=== PATIENT | female | born 1965 | race Caucasian/White ===

== ENCOUNTER 2024-12-16 09:49 | Emergency (ER) | payer BC, OTHER, SELFPAY ==
--- NOTE | ~2024-12-16 | CT_ITS ---
EXAMINATION: CT facial bones w con DATE: 12/16/2024 15:28 INDICATION: Left facial swelling. TECHNIQUE: Computed tomography (CT) of the facial bones and maxillofacial region was performed with 7 5 mL Omnipaque 350 intravenous contrast. Automated exposure control and iterative reconstruction tech [employer] were employed. The dose-length product was 270.87 mGy-cm. COMPARISON: None. FINDINGS: There is mild plaque in the proximal internal carotid arteries with 0% stenosis relative to normal distal artery lumen diameters. There are calcifications in the palatine tonsils. There are no pathologically enlarged lymph nodes. There is mild mucosal thickening in the ethmoid sinuses. The or bits are normal. In the left cheek, there is a 9 mm subcutaneous cystic mass with surrounding fat str anding. IMPRESSION: 1. 9 mm subcutaneous cystic mass with surrounding fat stranding in the left cheek, which may be a escobar aceous cyst with inflammation. Reviewed, dictated and finalized at location L. IMPRESSION: 1. 9 mm subcutaneous cystic mass with surrounding fat stranding in the left aleksey ek, which may be a sebaceous cyst with inflammation.
[2024-12-16 10:03] VITALS: BP 124/78; PULSE 81; RESP 16; TEMP 36.6; O2SAT 99
--- OUTSIDE RECORDS SUMMARY | 2024-12-16 10:25 | XMS_ITS | CONTINUITY OF CARE DOCUMENT ---
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
--- OUTSIDE RECORDS SUMMARY | 2024-12-16 10:25 | XMS_ITS | Data Portability ---
Author Organization ALEJO RANDIThomas Barlow Address [address] [place] [address] Care Team Providers Care Clothes Designer Name Role Phone NIKI ERNANDEZ Primary Care Provider [phone] Assessment No assessment recorded. Plan of Treatment Reminders Order Date Submit Date Provider Last Modified By Organization Details Last Modified Time Details Appointments None recorded. Lab CMP, serum or plasma 2022 023 [facility] (Lab), [address] [place], [address], 3 06:18:31 lipid panel w/ direct LDL, serum [email or web address] (Lab), [address] [place], [address], 3 08:41:17 unlisted lab - CBC with different ial/plate let [email or web address] (Lab), [address] [place], [address], 3 10:36:01 CMP, serum or plasma 2022 023 [facility], [facility], [address] [address], [place], [address], 3 07:23:12 CBC w/ auto diff 2022 023 [facility], [address] [facility], [address], [place], [address], 3 06:18:32 lipid panel, serum 2022 023 [facility], [address], [address], [place], [address], 3 06:18:31 HbA1c (hemoglob in A1c), blood 2022 023 [facility], [address] [facility] [address], [address], [place], [address], 3 13:11:04 TSH + free T4, serum 2022 023 [facility], [address] [address], [place], [address], 3 13:11:03 vitamin B12 + folate, serum or blood 2022 023 [facility], [address] [facility] [address], [address], [place], [address], 3 13:11:04 pap, IG + HPV, cervical - please use Z11.51 in addition to code above for HPV testing. 2020 [facility], [address], [address] [address], [place], [address], 16:12:32 bacterial vaginosis panel, vaginal 2020 [facility] (Centralized Electronic Ordering - All Locations), Patient Can Go To The Location Of Their Choice, 03:07:25 culture, vaginal/r ectal, streptoco ccus group B 2020 [facility] (Centralized Electronic Ordering - All Locations), Patient Can Go To The Location Of Their Choice, [address] 10/19/202 1 03:07:26 Referral cardiolog ist referral 2022 023 [facility], 0 [facility], [facility] [address], [place], [address], 3 10:59:36 gynecolog ist referral - hx of cervical cancerabn ormal pap 2020 023 [facility], [address] [place], [address], 4 15:11:31 physical therapist referral 2022 023 [facility], [address] [place], [address], 3 12:09:38 pulmonolo gist referral 2022 023 [facility] Garr[facility], [address] [place], [address], 4 05:01:47 cardiolog ist referral 2022 023 [facility], 0 [facility], [facility] [address], [place], [address], 3 11:07:[address] referral 2022 023 [facility], [address] , [facility] [address], [place], [address], 3 11:06:20 physical therapist referral 2022 023 [facility], [address] [place], [address], 3 09:39:31 pulmonolo gist referral 2022 023 [facility] Garrido, [address] [facility], [place], [address], 3 16:19:38 Procedures None recorded. Surgeries None recorded. Imaging DEXA, axial skeleton + vertebral fracture assessmen t 2022 023 [facility] (Radiology), [address] [place], [address], 3 11:40:45 MAMMO, screening , bilateral 2022 023 [facility] (One Call Scheduling), [address] [place], [address], 3 11:37:42 DEXA, axial skeleton + vertebral fracture assessmen t [address] (One Call Scheduling), [address] [place], [address], 3 16:14:51 XR, thoracic spine [address] [facility] (One Call Scheduling), [address] [place], [address], 3 09:39:56 CT, chest, w/ contrast 2022 023 [facility], [address] [place], [address], 3 20:06:40 MAMMO, screening , bilateral [address] [facility] (One Call Scheduling), [address] [place], [address], 1 14:06:50 DEXA, axial skeleton [address] [facility] (One Call Scheduling), [address] [place], [address], 1 13:08:36 Medication Orders bupropion HCl 150 mg tablet,12 hr sustained -release( smoking deterrent ) [address]23 [address] [address], [address] [place] [address], [address], 3 09:59:44 Calcium with Vitamin D 600 mg-10 mcg (400 unit) tablet [address] [facility], [address] [place] [address], [address], 3 21:02:14 albuterol sulfate HFA 90 mcg/actua tion aerosol inhaler 2022 023 [address] [address], [address] [place] [address], [address], 3 09:09:49 multivita min tablet 2022 023 [address] [address], [address] [place] [address], [address], 3 21:08:50 aspirin 81 mg tablet,de layed release 2022 023 [address] [address], [address] [place] [address], [address], 3 16:14:51 multivita min tablet 2020 021 [facility], [address] [place] [address], [address], 1 14:35:04 Calcium with Vitamin D 600 mg-10 mcg (400 unit) tablet 2020 [address] [address], [address] [place] [address], [address], 1 14:35:04 Patient TargetsNo targets recorded. Patient Instructions Encounter Date Encounter Id Patient Instructions Last Modified By Organization Details Last Modified Time 07/15/2021 [id number] influenza (flu) vaccine: care instructions meenu Not available 07/15/2021 15:11:32 mammogram: about this test meenu Not available 07/15/2021 14:35:04 mammogram screening patient instructions meenu Not available 07/15/2021 14:35:04 03/10/2023 [id number] complete PFT w/ post bronchodilator spirometry* [facility] Not available 03/26/2023 16:40:32 I have reviewed the patient's medical record and the note from this clinical encounter. I was available by phone for the duration of the visit. I agree with the assessment and plan with the following addendum: Recommend a statin if pt will tolerate. Pt simply must quit smoking. Prashant Pritchard MD Not available 03/16/2023 15:09:24 06/24/2023 [id number] Quitting Tobacco : Care Instructions Not available 06/24/2023 09:59:45 Learning About Benefits of Quitting Smoking Not available 06/24/2023 09:59:45 I have reviewed the patient's medical record and the note from this clinical encounter. I was available by phone for the duration of the visit. I agree with the assessment and plan with the following addendum: [none]. Prashant Pritchard MD Not available 06/25/2023 11:19:16 Reason for Referral Neurologist Referral for His tory of transient ischemic attack Referring Physician: [facility], Encounter Date: 03/10/2023 Installation Drafter Referral for Fl uttering heart Referring Physician: General Krissy Zhou, Encounter Date: 03/10/2023 Physical Therapist Referral for Thoracic back pain Referring Physician: General Krissy Zhou, Encounter Date: 03/10/2023 Business Instructor Referral for N odule of lung Referring Physician: General Krissy Zhou, Encounter Date: 03/10/2023 Installation Drafter Referral for Fl uttering heart Referring Physician: Niki Ernandez Frozen Pie Maker, Encounter Date: 06/24/2023 Physical Therapist Referral for Thoracic back pain Referring Physician: Niki Ernandez Frozen Pie Maker, Encounter Date: 06/24/2023 Business Instructor Referral for N odule of lung Referring Physician: Niki Ernandez Frozen Pie Maker, Encounter Date: 06/24/2023 Director Of Operations For Therapy Referral for Hi story of malignant neoplasm of cervix hx of cervical cancerabnormal pap 2020 Referring Physician: Niki Ernandez Frozen Pie Maker, Encounter Date: 06/24/2023 Results Created Date Observation Date Name Description Value Unit Range Abnormal Flag Note LastModifiedBy Organization Detail LastModifiedTime 07/15/2007/17/2021 IGP, APTIM A HPV HPV aptima Positi ve negati ve abnormal This nucle ic acid ampli ficat ion test detec ts fourt een high- risk HPV types (16,1 8,31, 33,35 ,39,4 5,51, 52,56 ,58,5 9,66, 68) witho ut diffe renti ation . Not Available [facility] ([facility]) [address] [place], [address], 07/18/2021 16:12:32 07/15/2007/18/2021 IGP, APTIM A HPV diagnosis: Commen t abnormal EPITH ELIAL CELL ABNOR MALIT Y. LOW GRADE SQUAM OUS INTRA EPITH ELIAL LESIO N (LSIL ). Not Available [facility] ([facility]) [address] [place], [address], 07/18/2021 16:12:32 07/15/2007/18/2021 IGP, APTIM A HPV recommendati on: Commen t abnormal Sugge st follo w up as clini timo appro priat e. Not Available [facility] ([facility]) [address] [place], [address], 07/18/2021 16:12:32 07/15/20 07/18/2021 IGP, APTIM A HPV specimen adequacy: Sal hines Satis facto ry for evalu ation . Endoc ervic al and/o r squam ous metap lasti c cells (endo cervi hector compo nent) are prese nt. Not Available [facility] ([facility]) [address] [facility], [place], [address], 07/18/2021 16:12:32 07/15/20 21 07/18/2021 IGP, APTIM A HPV clinician provided ICD10: Sal hines Z01.4 19 Z11.5 1 Z20.2 Not Available [facility] ([facility]) [address] [place], [address], 07/18/2021 16:12:32 07/15/20 21 07/18/2021 IGP, APTIM A HPV performed by: Sal Cohen r, Cytot echno logis t Not Available [facility] ([facility]) [address] [place], [address], 07/18/2021 16:12:32 07/15/20 21 07/18/2021 IGP, APTIM A HPV electronical ly signed by: Sal Mello MD, Patho logis t Not Available [facility] ([facility]) [address] [place], [address], 07/18/2021 16:12:32 07/15/20 21 07/18/2021 IGP, APTIM A HPV . . Not Available [facility] ([facility]) [address] [place], [address], 07/18/2021 16:12:32 07/15/20 21 07/18/2021 IGP, APTIM A HPV pathologist provided ICD10: Sal hines R87.6 12 Not Available [facility] ([facility]) [address] [place], [address], 07/18/2021 16:12:32 07/15/20 21 07/18/2021 IGP, APTIM A HPV note: Commen t The Pap smear is a scree mary test desig deng to aid in the detec tion of stephanie ligna nt and malig nant condi tions of the uteri ne cervi x. It is not a diagn ostic proce dure and shoul d not be used as the sole means of detec ting cervi hector cance r. Both false -posi tive and false -nega tive repor ts do occur . Not Available [facility] ([facility]) [address] [facility], [place], [address], 07/18/2021 16:12:32 07/15/20 21 07/18/2021 IGP, APTIM A HPV test methodology: Sal t This liqui d based ThinP rep(R ) pap test was scree deng with the use of an image guide lauryn yung Not Available [facility] ([facility]) [address] [facility], [place], [address], 07/18/2021 16:12:32 07/15/20 21 07/16/2021 NUSWA B VG+, HSV atopobium vaginae Low - 0 score Not Available [facility] ([facility]) [address] [facility], [place], [address], 07/23/2021 03:07:25 07/15/20 21 07/16/2021 NUSWA B VG+, HSV bvab 2 Low - 0 score Not Available [facility] ([facility]) [address] [place], [address], 07/23/2021 03:07:25 07/15/20 21 07/16/2021 NUSWA B VG+, HSV megasphaera 1 Low - 0 score Calcu late total score by froy blount the 3 indiv idual bacte rial vagin osis (BV) marke r score s toget her. Total score is inter prete d as follo ws: Total score 0-1: Indic ates the absen ce of BV. Total score 2: Indet ermin ate for BV. Addit ional clini hector data shoul d be evalu ated to estab debra a diagn osis. Total score 3-6: Indic ates the prese nce of BV. This test was devel oped and its perfo rmanc e jv cteri stics deter mined by [facility]. It has not been clear ed or appro naina by the Food and Drug Admin istra tion. Not Available [facility] ([facility]) [address] [facility], [place], [address], 07/23/2021 03:07:25 07/15/2007/16/2021 NUSWA B VG+, HSV renaldo albicans, SAM Negati ve negati ve Not Available [facility] ([facility]) [address] [place], [address], 07/23/2021 03:07:25 07/15/2007/16/2021 NUSWA B VG+, HSV renaldo glabrata, SAM Negati ve negati ve Not Available [facility] ([facility]) [address] [place], [address], 07/23/2021 03:07:25 07/15/2007/16/2021 NUSWA B VG+, HSV trich vag by SAM Negati ve negati ve Not Available [facility] ([facility]) [address] [place], [address], 07/23/2021 03:07:25 07/15/2007/16/2021 NUSWA B VG+, HSV chlamydia trachomatis, SAM Negati ve negati ve Not Available [facility] ([facility]) [address] [place], [address], 07/23/2021 03:07:25 07/15/20 21 07/16/2021 NUSWA B VG+, HSV neisseria gonorrhoeae, SAM Negati ve negati ve Not Available [facility] ([facility]) [address] [facility], [place], [address], 07/23/2021 03:07:25 07/15/20 21 07/23/2021 NUSWA B VG+, HSV hsv 1 SAM Negati ve negati ve Not Available [facility] ([facility]) [address] [facility], [place], [address], 07/23/2021 03:07:25 07/15/2007/23/2021 NUSWA B VG+, HSV hsv 2 SAM Negati ve negati ve Not Available [facility] ([facility]) [address] [facility], [place], [address], 07/23/2021 03:07:25 07/15/2007/17/2021 STREP GP B SAM strep gp B SAM Negati ve negati ve Cente rs for Disea se Contr ol and Preve ntion (CDC) and [facility]itchie can Congr ess of Obste trici ans and Gynec ologi sts (ACOG ) guide lines for preve ntion of perin atal group B strep tococ hector (GBS) disea se speci fy co-co llect ion of a vagin al and recta l swab speci men to maxim ize sensi tivit y of GBS detec tion. Per the CDC and ACOG, swabb ing both the lower vagin a and rectu m subst antia lly incre ases the yield of detec tion darryl red with sampl ing the vagin a alone . Penic illin G, ampic illin , or cefaz aj are indic ated for intra partu m proph ylaxi s of perin atal GBS colon izati on. Refle x susce ptibi lity testi ng shoul d be perfo rmed prior to use of clind amyci n only on GBS isola jennifer from penic illin -rod rgic women who are consi dered a high risk for anaph ylaxi s. Treat ment with vanco mycin witho ut addit ional testi ng is warra nted if resis tance to clind alyse n is noted . Not Available [facility] ([facility]) [address] [place], [address], 07/23/2021 03:07:26 03/10/2003/17/2023 TSH+F REE T4 TSH 1.600 uIU/m L 0.450- 4.500 Not Available [facility] ([facility]) [address] [place], [address], 03/17/2023 13:11:03 03/10/2003/17/2023 TSH+F REE T4 T4,free(dire ct) 1.58 NG/dL 0.82-1 .77 Not Available [facility] ([facility]) [address] [place], [address], 03/17/2023 13:11:03 03/10/2003/17/2023 VITAM IN B12 AND FOLAT E vitamin B12 404 pg/mL 232-12 45 Not Available [facility] ([facility]) [address] [place], [address], 03/17/2023 13:11:04 03/10/2003/17/2023 VITAM IN B12 AND FOLAT E folate (folic acid), serum 9.5 NG/mL >3.0 A serum folat e salvador ntrat ion of less than 3.1 ng/mL is consi dered to repre sent clini hector defic iency . Not Available [facility] ([facility]) [address] [place], [address], 03/17/2023 13:11:04 03/10/2003/17/2023 HEMOG LOBIN A1C hemoglobin A1C 5.6 % 4.8-5. 6 Predi abete s: 5.7 - 6.4 Diabe jennifer: >6.4 Glyce heriberto contr ol for adult s with diabe jennifer: <7.0 Not Available [facility] ([facility]) [address] [place], [address], 03/17/2023 13:11:04 06/24/20 23 06/25/2023 LIPID PANEL cholesterol, total 248 mg/dL 100-19 9 above high normal Not Available [facility] ([facility]) [address] [place], [address], 06/25/2023 06:18:30 06/24/20 23 06/25/2023 LIPID PANEL triglyceride s 160 mg/dL 0-149 above high normal Not Available [facility] ([facility]) [address] [place], [address], 06/25/2023 06:18:30 06/24/20 23 06/25/2023 LIPID PANEL HDL cholesterol 53 mg/dL >39 Not Available [facility] ([facility]) [address] [place], [address], 06/25/2023 06:18:30 06/24/20 23 06/25/2023 LIPID PANEL VLDL cholesterol hector 29 mg/dL 5-40 Not Available [facility] ([facility]) [address] [place], [address], 06/25/2023 06:18:30 06/24/20 23 06/25/2023 LIPID PANEL LDL chol calc ([facility]) 166 mg/dL 0-99 above high normal Not Available [facility] ([facility]) [address] [place], [address], 06/25/2023 06:18:30 06/24/20 23 06/25/2023 COMP. METAB OLIC PANEL (14) glucose 80 mg/dL 70-99 Not Available [facility] ([facility]) [address] [place], [address], 06/25/2023 06:18:31 06/24/20 23 06/25/2023 COMP. METAB OLIC PANEL (14) BUN 22 mg/dL 6-24 Not Available [facility] ([facility]) [address] [place], [address], 06/25/2023 06:18:31 06/24/20 23 06/25/2023 COMP. METAB OLIC PANEL (14) creatinine 1.16 mg/dL 0.57-1 .00 above high normal Not Available [facility] ([facility]) [address] [place], [address], 06/25/2023 06:18:31 06/24/20 23 06/25/2023 COMP. METAB OLIC PANEL (14) eGFR 54 mL/mi n/1.7 3 >59 below low normal Not Available [facility] ([facility]) [address] [place], [address], 06/25/2023 06:18:31 06/24/20 23 06/25/2023 COMP. METAB OLIC PANEL (14) BUN/creatini ne ratio 19 9-23 Not Available [facility] ([facility]) [address] [place], [address], 06/25/2023 06:18:31 06/24/20 23 06/25/2023 COMP. METAB OLIC PANEL (14) sodium 139 mmol/ L 134-14 4 Not Available [facility] ([facility]) [address] [place], [address], 06/25/2023 06:18:31 06/24/20 23 06/25/2023 COMP. METAB OLIC PANEL (14) potassium 4.7 mmol/ L 3.5-5. 2 Not Available [facility] ([facility]) [address] [place], [address], 06/25/2023 06:18:31 06/24/20 23 06/25/2023 COMP. METAB OLIC PANEL (14) chloride 103 mmol/ L 96-106 Not Available [facility] ([facility]) [address] [place], [address], 06/25/2023 06:18:31 06/24/20 23 06/25/2023 COMP. METAB OLIC PANEL (14) carbon dioxide, total 24 mmol/ L 20- Not Available [facility] ([facility]) [address] [facility], [place], [address], 06/25/2023 06:18:31 06/24/20 23 06/25/2023 COMP. METAB OLIC PANEL (14) calcium 9.4 mg/dL 8.7-10 .2 Not Available [facility] ([facility]) [address] [facility], [place], [address], 06/25/2023 06:18:31 06/24/20 23 06/25/2023 COMP. METAB OLIC PANEL (14) protein, total 6.8 g/dL 6.0-8. 5 Not Available [facility] ([facility]) [address] [facility], [place], [address], 06/25/2023 06:18:31 06/24/20 23 06/25/2023 COMP. METAB OLIC PANEL (14) albumin 4.4 g/dL 3.8-4. 9 Not Available [facility] ([facility]) [address] [facility], [place], [address], 06/25/2023 06:18:31 06/24/20 23 06/25/2023 COMP. METAB OLIC PANEL (14) globulin, total 2.4 g/dL 1.5-4. 5 Not Available [facility] ([facility]) [address] [facility], [place], [address], 06/25/2023 06:18:31 06/24/20 23 06/25/2023 COMP. METAB OLIC PANEL (14) A/G ratio 1.8 1.2-2. 2 Not Available [facility] ([facility]) [address] [facility], [place], [address], 06/25/2023 06:18:31 06/24/20 23 06/25/2023 COMP. METAB OLIC PANEL (14) bilirubin, total 0.5 mg/dL 0.0-1. 2 Not Available [facility] ([facility]) [address] [place], [address], 06/25/2023 06:18:31 06/24/20 23 06/25/2023 COMP. METAB OLIC PANEL (14) alkaline phosphatase 87 IU/L 44-121 Not Available [facility] ([facility]) [address] [place], [address], 06/25/2023 06:18:31 06/24/20 23 06/25/2023 COMP. METAB OLIC PANEL (14) AST (SGOT) 23 IU/L 0-40 Not Available [facility] ([facility]) [address] [place], [address], 06/25/2023 06:18:31 06/24/20 23 06/25/2023 COMP. METAB OLIC PANEL (14) ALT (SGPT) 18 IU/L 0-32 Not Available [facility] ([facility]) [address] [place], [address], 06/25/2023 06:18:31 06/24/20 23 06/24/2023 JAQUAN SIERRA V CMP14 DEFAU LT jaquan abbgraciav CMP14 default Commen t A hand- writt en panel /prof vernon was recei naina from your offic e. In accor dance with the [facility] Ambig uous Test Code Polic y dated April 2003, we have compl eted your order by using the close st santiagoe ntly or meeta marley recog nized AMA panel . We have assig deng Asad lou edd Metab olic Panel (14), Test Code #32[address]. If this is not the testi ng you wishe d to recei ve on this speci men, pleas e conta ct the [facility] Clien t Inqui ry/Te chnic al Servi emerita Depar tment to demarcus fy the test order . We appre ciate your busin ess. Not Available [facility] ([facility]) [address] [facility], [place], [address], 06/25/2023 06:18:32 06/24/20 23 06/24/2023 JAQUAN ENCINASRE V LP DEFAU LT jaquan encinasrev LP default Commen t A hand- writt en panel /prof ile was recei naina from your offic e. In accor dance with the [facility] Ambig uous Test Code Polic y dated April 2003, we have compl eted your order by using the close st curre ntly or forme rly recog nized AMA panel . We have assmax vilchis Lipid Panel , Test Code #30[address]. If this is not the testi ng you wishe d to recei ve on this speci men, pleas e conta ct the [facility] Clien t Inqui ry/Te chnic al Servi emerita Depar tment to demarcus fy the test order . We appre ciate your busin ess. Not Available [facility] ([facility]) [address] [facility], [place], [address], 06/25/2023 06:18:32 06/24/20 23 06/25/2023 CBC WITH DIFFE RENTI AL/PL ATELE T WBC 5.4 x10e3 /uL 3.4-10 .8 Not Available [facility] ([facility]) [address] [facility], [place], [address], 06/25/2023 06:18:32 06/24/20 23 06/25/2023 CBC WITH DIFFE RENTI AL/PL ATELE T RBC 3.91 x10e6 /uL 3.77-5 .28 Not Available [facility] ([facility]) [address] [facility], [place], [address], 06/25/2023 06:18:32 06/24/20 23 06/25/2023 CBC WITH DIFFE RENTI AL/PL ATELE T hemoglobin 13.1 g/dL 11.1-1 5.9 Not Available [facility] ([facility]) [address] [place], [address], 06/25/2023 06:18:32 06/24/20 23 06/25/2023 CBC WITH DIFFE RENTI AL/PL ATELE T hematocrit 38.9 % 34.0-4 6.6 Not Available [facility] ([facility]) [address] [place], [address], 06/25/2023 06:18:32 06/24/20 23 06/25/2023 CBC WITH DIFFE RENTI AL/PL ATELE T MCV 100 fL 79-97 above high normal Not Available [facility] ([facility]) [address] [place], [address], 06/25/2023 06:18:32 06/24/20 23 06/25/2023 CBC WITH DIFFE RENTI AL/PL ATELE T MCH 33.5 pg 26.6-3 3.0 above high normal Not Available [facility] ([facility]) [address] [place], [address], 06/25/2023 06:18:32 06/24/20 23 06/25/2023 CBC WITH DIFFE RENTI AL/PL ATELE T MCHC 33.7 g/dL 31.5-3 5.7 Not Available [facility] ([facility]) [address] [place], [address], 06/25/2023 06:18:32 06/24/20 23 06/25/2023 CBC WITH DIFFE RENTI AL/PL ATELE T RDW 12.5 % 11.7-1 5.4 Not Available [facility] ([facility]) [address] [place], [address], 06/25/2023 06:18:32 06/24/20 23 06/25/2023 CBC WITH DIFFE RENTI AL/PL ATELE T platelets 290 x10e3 /uL 150-45 0 Not Available [facility] ([facility]) [address] [facility], [place], [address], 06/25/2023 06:18:32 06/24/20 23 06/25/2023 CBC WITH DIFFE RENTI AL/PL ATELE T neutrophils 54 % notest ab. Not Available [facility] ([facility]) [address] [facility], [place], [address], 06/25/2023 06:18:32 06/24/20 23 06/25/2023 CBC WITH DIFFE RENTI AL/PL ATELE T lymphs 34 % notest ab. Not Available [facility] ([facility]) [address] [facility], [place], [address], 06/25/2023 06:18:32 06/24/20 23 06/25/2023 CBC WITH DIFFE RENTI AL/PL ATELE T monocytes 7 % notest ab. Not Available [facility] ([facility]) [address] [facility], [place], [address], 06/25/2023 06:18:32 06/24/20 23 06/25/2023 CBC WITH DIFFE RENTI AL/PL ATELE T eos 4 % notest ab. Not Available [facility] ([facility]) [address] [facility], [place], [address], 06/25/2023 06:18:32 06/24/20 23 06/25/2023 CBC WITH DIFFE RENTI AL/PL ATELE T basos 1 % notest ab. Not Available [facility] [facility] [address] [place], [address], 06/25/2023 06:18:32 06/24/20 23 06/25/2023 CBC WITH DIFFE RENTI AL/PL ATELE T neutrophils (absolute) 2.9 x10e3 /uL 1.4-7. 0 Not Available [facility] ([facility]) [address] [facility], [place], [address], 06/25/2023 06:18:32 06/24/20 23 06/25/2023 CBC WITH DIFFE RENTI AL/PL ATELE T lymphs (absolute) 1.8 x10e3 /uL 0.7-3. 1 Not Available [facility] ([facility]) [address] [facility], [place], [address], 06/25/2023 06:18:32 06/24/20 23 06/25/2023 CBC WITH DIFFE RENTI AL/PL ATELE T monocytes(ab solute) 0.4 x10e3 /uL 0.1-0. 9 Not Available [facility] ([facility]) [address] [facility], [place], [address], 06/25/2023 06:18:32 06/24/20 23 06/25/2023 CBC WITH DIFFE RENTI AL/PL ATELE T eos (absolute) 0.2 x10e3 /uL 0.0-0. 4 Not Available [facility] ([facility]) [address] [facility], [place], [address], 06/25/2023 06:18:32 06/24/20 23 06/25/2023 CBC WITH DIFFE RENTI AL/PL ATELE T baso (absolute) 0.1 x10e3 /uL 0.0-0. 2 Not Available [facility] ([facility]) [address] [place], [address], 06/25/2023 06:18:32 06/24/20 23 06/25/2023 CBC WITH DIFFE RENTI AL/PL ATELE T immature granulocytes 0 % notest ab. Not Available [facility] ([facility]) [address] [facility], [place], [address], 06/25/2023 06:18:32 06/24/20 23 06/25/2023 CBC WITH DIFFE RENTI AL/PL ATELE T immature grans (abs) 0.0 x10e3 /uL 0.0-0. 1 Not Available [facility] ([facility]) [address] [facility], [place], [address], 06/25/2023 06:18:32 08/02/20 21 08/02/2021 DEXA, axial skele ton No observ ation record ed. [address] ([facility]) [address] [place], [address], 08/22/2021 10:03:58 08/02/20 21 08/02/2021 DEXA, axial skele ton No observ ation record ed. [facility] [address] [place], [address], 08/14/2021 11:02:45 08/02/20 21 08/02/2021 MAMMO , scree mary, bilat eral No observ ation record ed. [address] ([facility]) [address] [place], [address], 08/22/2021 10:04:24 08/02/20 21 08/02/2021 MAMMO , scree mary, bilat eral No observ ation record ed. [facility] [address] [place], [address], 08/10/2021 22:57:46 01/11/20 22 01/10/2022 CT, abdom en + pelvi s, w/o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 influenza vaccine 85769169 Atrophic vaginitis 65207913 Menopausal syndrome 363477381 Venereal d isease screening 883821544 Screening mammography [id number] Paulina Yunier Salcedo (Adult Med) [address] [place] [address] [id number] 0 05/07/2015 16:15:58 05/08/2015 11:11:22 Ulcer of duodenum 66280926 Depressive disorder 00922732 Anxiety 19062918 [id number] Debbie High is Matias (Adult Med) [address] [place] [address] [id number] 0 09/20/2015 14:04:59 09/20/2015 18:08:01 Shoulder pain 18361986 M25.519 Ulcer of duodenum 582118 09 K26.3 [id number] Debbie High is Matias (Adult Med) [address] [place] [address] [id number] 0 10/10/2015 14:01:22 10/11/2015 13:02:21 Ulcer of duodenum 29962461 K26.3 H. pylori negative Tobacco user 715399499 Z 72.0 Gastroesop hageal reflux disease 771110900 K21.9 Tomography - chest abnormal 258308252 R93.[address] noncalcifi ed bilateral pulmonary nodules( no change from 04/2015 to 10/2015). repeat in 6 months [id number] Edward Salcedo (SINTER MACHINE OPERATOR) [address] [place] [address] [id number] 0 10/11/2015 14:38:33 10/11/2015 16:52:37 Irritable bowel syndrome 18223682 K58.9 [id number] Paulina Faye Matias (Adult Med) [address] [place] [address] [id number] 0 03/18/2016 16:05:25 03/19/2016 10:18:57 Skin lesion 54990663 L98.9 Tomography - chest abnormal 706358608 R93.[address] noncalcifi ed bilateral pulmonary nodules( no change from 04/2015 to 10/2015). repeat in 6 months [id number] MD Matias Pina (Adult Med) [address] [place] [address] [id number] 0 05/05/2017 12:04:30 05/06/2017 12:19:04 Chronic back pain 983858329 R52 Pain in wrist 13567741 M 25.532 Hyperpigme ntation of skin 02219192 L81.9 [id number] MD Matias Pina (Adult Med) [address] [place] [address] [id number] 0 06/16/2017 11:07:32 06/16/2017 12:00:06 Ulcer of duodenum 44014231 K26.3 H. pylori negative Anxiety 19136224 F41.9 History of peptic ulcer 680599556 Z87.11 Pain in wrist 54501639 M 25.532 Gastroesop hageal reflux disease 355201697 K21.9 Tomography - chest abnormal 045661939 R93.[address] noncalcifi ed bilateral pulmonary nodules( no change from 04/2015 to 10/2015). repeat in 6 months [id number] MD Matias Pina (Adult Med) [address] [place] [address] [id number] 01/24/2019 16:57:51 01/24/2019 18:16:10 Gastroesophageal reflux disease 054196077 K21.9 Hyperglycemia 25546502 R 73.9 [id number] MD Matias Pina (Adult Med) [address] [place] [address] [id number] 0 04/25/2020 10:35:50 04/26/2020 16:07:34 Right sided abdominal pain 033990171 R10.9 Loose stool 903585441 R1 9.5 [id number] MD Matias Pina (Adult Med) [address] [place] [address] [id number] 0 05/28/2021 12:22:09 05/31/2021 08:33:52 Diverticulosis of colon 162121740 K57.30 Re Chronic ab dominal pain 604235463 R10.9 Request most recent ED reports Micturitio n frequency and polyuria 222924768 R35.0 [id number] Edward WhitleyEmmavalentin Salcedo (SINTER MACHINE OPERATOR) [address] [place] [address] [id number] 0 07/15/2021 14:09:29 07/18/2021 14:41:54 Gynecologic examination 43191765 Z01.419 Z11.51 Screening mammography 24 341634 Z12.31 Exposure t o sexually transmissible disorder 329879155 Z20.2 Screening for osteoporosis 774104631 Z13.820 Administra tion of influenza vaccine 91154882 Z23 [id number] Boston Salcedo (SINTER MACHINE OPERATOR) [address] [place] [address] [id number] 0 08/27/2021 11:46:33 09/05/2021 08:49:30 Low grade squamous intraepithelial lesion on cervical Papanicolaou smear 6348445649 9105 R87.612 07/25/2021 : LGSIL, HPV pos02/16/20 15: NILM, HPV negInitial scheduled for Colposcopy . Per new ASCCP guidelines , follow up in 1 year for repeat PapEducati on on new management guidelines provided to patient. All questions and concerns addressed and patient agrees to return in 1 year for repeat Pap. [id number] Prashant barnes MD [facility] [address] [place] [address] 03/10/2023 14:47:36 03/10/2023 15:59:25 Nodule of lung 734321990 R91.1 7mm R lung Abnormal c ervical Papanicolaou smear 286007434 R87.619 LSIL + hpv 2020hx of cervical cancer age 17 s/p cryotherap y with cone bx Smoker 91695441 F17.200 1/4 ppd since age [age] years pack hxct scan ordered w/ contrast due to known nodules History of transient ischemic attack 248655737 Z86.73 I had a ministroke around 2020. states she developed blurry vision for 10 minutes. never went to the hospital. No recent episodes Screening mammography 24 917638 Z12.31 left breast surgery lumpectomy , benign Osteopenia 570823918 M85 .80 on dexa scannever picked up bisphospho natescreen start calcium+ Vitamin D Thoracic back pain 03604 8004 M54.6 pain has been going x 20 yearsworse in winternoth ing for paintried PT for pain History of malignant neoplasm of cervix 735830465 Z85.[address] Gama in [facility] cryotherap y cone biopsy done Fluttering heart 7920478 04 R00.2 my heart flutters at times - cardiology Chronic ob structive pulmonary disease 64224007 J44.[address] scan 2020. admits to SOB on occasion with exertion and sometimes laying down. worse with this muggy weather. - obtain PFT- trial inhaler-st op smoking Adult heal th examination 726101129 Z00.00 - due for mammogram- need OBGYN komal for hx of cervical cancer and LSIL + HPV 2020- b12 for macroblast ic anemia- r/o DM, hyperlipid emia- start aspirin- neurology referral for TIA> 1 year ago- stop smoking- CT for pulm nodules Nutritiona l deficiency state 04174836 E63.9 pt with osteopenia and hx of megalobast ic anemia w/o any use of alcohol. She drinks >40 oz of mountain dew, has cereal for breakfast and denies eating any veggies. occasional ly has eggs or meats. - spent much time discussing diet and nutrition- start multivitam in- take ca+vitD [id number] Inocencia Chen MA [facility] [address] [place] [address] 03/16/2023 10:48:28 03/16/2023 10:50:21 [id number] Prashant barnes MD [facility] [address] [place] [address] 06/24/2023 09:00:00 06/24/2023 09:47:47 Nodule of lung 053796073 R91.1 7mm R lungdid not scheduleCT 2022, stable Smoker 43852796 F17.200 1/4 ppd since age [age] years pack hxstart bupropion, has failed patches in the past Osteopenia 319486657 M85 .80 repeat dexa scancontin ue calcium+ Vitamin D Thoracic back pain 81097 8004 M54.6 pain has been going x 20 yearsworse in winternoth ing for paindid not do PT, referral re-sent History of malignant neoplasm of cervix 503328309 Z85.41 hx of cervical cancer age 17 s/p cryotherap y with cone bx ([place] Gama in [place] + hpv 2020 Fluttering heart 3703490 04 R00.2 my heart flutters at times flut tering at night time- cardiology Chronic ob structive pulmonary disease 31005896 J44.[address] scan 2020.moder ate COPD on PFT 2022 - PREVNAR 23- start bupropion for smoking cessation Arterioscl erotic vascular disease 73096862 I70.90 changed on MRI per neurology (Dr RABAGO), requesting records and MRItaking aspirinhas not started statin, agrees to startstop smoking Health Concerns Section Related Observation LastModified by Organization Detai ls LastModified Time None Recorded Concern Status LastModified by Organization Details LastModified Time None Recorded Advance Directives Directive N: Payers Encounter Date Sequence Insurance Name Policy Number Policy Ariza Covered Member ID Ariza Member ID Guarantor Name 07/15/2021 1 [facility] ON OR AFTER 04/04/21 (MEDICAID REPLACEMENT - HMO) Ayanna Layton [id number] Ayanna Layton 08/27/2021 1 [facility] ON OR AFTER 04/04/21 (MEDICAID REPLACEMENT - HMO) Ayannarobert Layton [id number] Ayanna Layton 03/10/2023 1 [facility] ON OR AFTER 04/04/21 (MEDICAID REPLACEMENT - HMO) Ayanna Rush [id number] Ayanna Layton 03/16/2023 1 [facility] ON OR AFTER 04/04/21 (MEDICAID REPLACEMENT - HMO) Ayannarobert Layton [id number] Ayanna Layton 06/24/2023 1 [facility] ON OR AFTER 04/04/21 (MEDICAID REPLACEMENT - HMO) Ayanna Layton [id number] Ayanna Layton Notes Date Note Type Note Provider Name and Address Organization Details Recorded Time 07/15/2021 text/html Annual GYNReport ed bypatient.Menstrual cycle:Normal menses Urinary symptoms:No hematuria; No incontinence Vulva:No genital lesion Vagina:Normal vaginal discharge Breast:No breast pain; No breast lump; No nipple discharge Current Contraception: control not practiced Sexual complaints:No sexual complaints; No pain during intercourse; Normal libido Menopausal Symptoms:No menopausal symptoms; Normal vaginal lubrication Psychological symptoms:No depression; No anxiety; No PMDD Preventive measures:Encourage self breast examination; Encourage regular exercise; Encourage no tobacco use; Encourage regular mammograms starting age 40; Followed with Q3 year pap smear and high risk HPV typing 55 y/o F presents to clinic for WWE. ALEJO Cruz [facility] 07/15/2021 15:16:09 08/27/2021 text/html Patient is a 55-year-old female who presents today 4 previously scheduled for colposcopy. Patient had an abnormal Pap 07/15 significant for LGSIL, HPV pos (untyped). Patient denies any vaginal bleeding or pelvic pain. She has a history of OB normal Pap on 02/15/2015. No other complaints today. ALEJO Choudhary SI 09/08/2021 13:39:02 03/10/2023 text/html Ayanna is a [age] YO F smoker pmhxz back pain, COPD, diverticulitis, cervical cancer, lung nodules here for Im having mini strokes Patient states the mini stroke happened more than one year ago. I was at work at the [employer] mat and reaching up, putting tokens in the machine when something exploded in my head.' I had quadruple vision. I could see light but couldn't tell what anything was. She states this lasted 10 minutes until she could see again. About three months later she has another episode. She denies any more episodes since this time.Her primary told her not to worry about it. smoking: ~1/4ppd since age 14 osteopenia: was send bisphosphnate but never started. not taking calcium/vidD Diet: two 32 oz mountain dews per day. cereal for breakfast. Not eating veggies. occasionally has eggs and pork. On chart review she had megaloblastic anemia. denies drinking alcohol. Prashant Pritchard MD Attn: Accounting, [address] [place], [address], [facility] 03/16/2023 15:09:29 06/24/2023 text/html Ayanna is a [age] YO F smoker pmhxz back pain, COPD, diverticulitis, cervical cancer, lung nodules here for f/u Patient followed up with neurology Dr RABAGO. he told her she has clots in the small vessels. No follow up needed. she is taking aspirin. has not started statin. did not see cardiology for flutters, pulm for lung nodule, obgyn for hx of abnormal pap 2020 and cervical cancer. She did not complete PT. mammogram, CT lung, and PFT were completed and discussed today. smoking: ~1/4ppd since age 14. patches did not work. she would like to try bupropion. she denies hx of seizures. osteopenia: did not get dexa done, given today Diet: one 32 oz mountain dew in the morning and sweet tea big gulp daily. cereal for breakfast. Not eating veggies. occasionally has eggs and pork. Prashant Pritchard MD Attn: Accounting, 1 [facility] [place] [place], [address], [facility] 06/25/2023 11:19:32 OBGyn Episode Ob Episode Information Episode Created Date Number of Fetuses Patient Bloodtype Patient rh Status Prepregnancy Weight lbs Domestic Partner Domestic Partner Phone Father Name Floor Steward/Stewardess Status 10/11/19 16 1 CLOSED Fetus Data First Name Last Name Admitted to NICU Weight (g) Sex Living Outcome Pediatric Complications Fetus ID Race Codes Race Delivery Type F Full Term [id number] Vaginal Alex Calculation Initial Alex Date Initial Exam Date Initial Exam Provider Initial Ultrasound Date Last Menstrual Period Date Ultra Sound Weeks Gestation 0 Eighteen To Twenty Week Alex Update Ultra Sound Date Fundal Height At Umbil Quickening Date Ultra Sound Latest Weeks Gestation Final Alex Confirmed By Final Alex Confirmed Date Final Alex Date Ultra Sound Latest Days Gestation 0 0 Menstrual History Last Menstrual Date Menses Monthly On Bcp Conception Prior Menses Frequency Hcg Plus Date Menarche Onset Age Delivery Information Delivery Date Delivery Type Labor Anesthesia Weeks Gestation Incision Type Labor Labor Length Hrs Delivered By Post Complications Tubal Sterilization Discharge Date Comments 3 None 40 Discharge Information Feeding Method Contraceptive Method Maternal HG B and HCT Levels Ob Episode Information Episode Created Date Number of Fetuses Patient Bloodtype Patient rh Status Prepregnancy Weight lbs Domestic Partner Domestic Partner Phone Father Name Floor Steward/Stewardess Status 10/11/19 16 1 CLOSED Fetus Data First Name Last Name Admitted to NICU Weight (g) Sex Living Outcome Pediatric Complications Fetus ID Race Codes Race Delivery Type F Full Term [id number] Vaginal Alex Calculation Initial Alex Date Initial Exam Date Initial Exam Provider Initial Ultrasound Date Last Menstrual Period Date Ultra Sound Weeks Gestation 0 Eighteen To Twenty Week Alex Update Ultra Sound Date Fundal Height At Umbil Quickening Date Ultra Sound Latest Weeks Gestation Final Alex Confirmed By Final Alex Confirmed Date Final Alex Date Ultra Sound Latest Days Gestation 0 0 Menstrual History Last Menstrual Date Menses Monthly On Bcp Conception Prior Menses Frequency Hcg Plus Date Menarche Onset Age Delivery Information Delivery Date Delivery Type Labor Anesthesia Weeks Gestation Incision Type Labor Labor Length Hrs Delivered By Post Complications Tubal Sterilization Discharge Date Comments 4 None 40 Discharge Information Feeding Method Contraceptive Method Maternal HG B and HCT Levels
--- OUTSIDE RECORDS SUMMARY | 2024-12-16 10:25 | XMS_ITS | Clinical Summary ---
Author Organization [facility] [place] [address] Address [address] [place] [address] Care Team Providers Care Financial Operations Analyst Name Role Phone Niki Hollins Primary Care Provider + Allergies Active Allergy Reactions Criticality Noted Date Comments Codeine Nausea And Vomiting 07/26/2019 Reports severe nausea Medications aspirin 81 mg enteric coated tablet Take 1 tablet (81 mg total) by mouth daily for 90 days 03/10/2023 Active calcium carbonate-vitami n D3 (CALTRATE 600 + D) 1500 mg (600 mg elemental) -400 units per tablet Take 1 tablet by mouth 2 (two) times a day 03/10/2023 Active albuterol HFA (PROVENTIL HFA,VENTOLIN HFA,PROAIR HFA) 90 mcg/actuation inhaler Inhale 2 puffs every 4 (four) hours Active Active Problems No known active problems Social History Tobacco Use Types Packs/Day Years Used Date Smoking Tobacco: Every Day Cigarettes Tobacco Cessation:Ready to Q uit: Not Asked; Counseling Given: Not Answered Personal Safety Answer Date Recorded Getting School Help Needed Not on file 12/04 Comments Unknown Sex and Gender Information Value Date Recorded Sex Assigned at Not on file Legal Sex 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 Gender Identity Not on file Sexual Orientation Not on file Obstetrics History Last Filed Vital Signs Vital Sign Reading Time Taken Comments Blood Pressure 122/72 06/18/2023 9:50 AM CDT Pulse 83 06/18/2023 9:50 AM CDT Temperature - - Respiratory Rate 17 05/04/2023 9:26 AM CDT Oxygen Saturation 96% 06/18/2023 9:50 AM CDT Inhaled Oxygen Concentration - - Weight 67.8 kg (149 lb 7.6 oz) 06/18/2023 9:50 A M CDT Height 165.1 cm (5' 5 ) 06/18/2023 9:50 AM CDT Body Mass Index 24.87 06/18/2023 9:50 AM CDT Plan of Treatment Health Maintenance Due Date Last Done Comments Breast Cancer Screening-Mammogram 1963 Cervical Cancer Screening 1963 Colon Cancer Screening-Colonoscopy 1963 Depression Screening 1963 Hepatitis C Screening 1963 DTaP/Tdap/Td Vaccine (1 - Tdap) 1974 Hepatitis B Screening 1981 Regular Well Visit/Exam 18-64 1981 Pneumococcal vaccine <65 (1 of 2 - PCV) 1982 Zoster Vaccine (1 of 2) 2013 Covid-19 Vaccine (3 - season) 06/05/202406/2021, 04/15/2021 Influenza Vaccine (#1) 2024 07/15/2021, 2014 Insurance [facility] [address] [place] [address] [facility] Care Teams Financial Operations Analyst Relationship Specialty Start Date End Date Niki Hollins PA [address] [place] [id number] PCP - General Physician Central Office Repairer Supervisor 03/26/23
--- OUTSIDE RECORDS SUMMARY | 2024-12-16 10:25 | XMS_ITS | Referral Summary ---
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
--- OUTSIDE RECORDS SUMMARY | 2024-12-16 10:25 | XMS_ITS | Patient Health Summary ---
Author Organization [facility] [email or web address] Address [address] [place] [address] Care Team Providers Care Climbing Guide Name Role Phone Berto Hernandez MD Primary Care Provider Note from [facility],non-owned Affiliates and Associated Physician Practices is amultiple site organization consisting of ambulatory clinics and hospital sitesin [place], [place], [place] and [place]. This disclosure is being madepursuant to the Care Everywhere program and may not contain all information available regarding this patient. Last updated 18.[facility] gis.to Allergies * Codeine(Nausea and/or Vomiting) Medications Be aware that medications may not be up to date on this document. Always verify current medications with the patient. No known medications Active Problems Problem Noted Date Diagnosed Date Anxiety 05/12/2019 Atrophic vaginitis 05/12/2019 Bacterial vaginosis 05/12/2019 Overactive bladder 05/12/2019 Carpal tunnel syndrome 05/12/2019 Chronic back pain 05/12/2019 Depressive disorder 05/12/2019 Duodenal ulcer disease 05/12/2019 Gastroesophageal reflux disease 05/12/2019 Irritable bowel syndrome 05/12/2019 Joint pain 05/12/2019 Mass of parotid gland 05/12/2019 Menopausal syndrome 05/12/2019 Muscle pain 05/12/2019 Musculoskeletal pain 05/12/2019 Premature beats 05/12/2019 Other screening mammogram 05/12/2019 Shoulder pain 05/12/2019 Skin lesion 05/12/2019 Tinnitus 05/12/2019 Tobacco user 05/12/2019 Abnormal tomography of chest 05/12/2019 Ulceration of intestine 05/12/2019 Dysphagia 05/12/2019 Hyperglycemia 01/24/2019 History of peptic ulcer 06/16/2017 Edema of lower extremity 05/05/2017 Hyperpigmentation of skin 05/05/2017 Pain in wrist 05/05/2017 Disease of salivary gland 05/15/2016 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/15/2016 Social History Tobacco Use Types Packs/Day Years Used Date Smoking Tobacco: Some Days Cigarettes Smokeless Tobacco: Never Tobacco Cessation:Ready to Q uit: Yes; Counseling Given: Yes Comments:1-4 daily Alcohol Use Standard Drinks/Week Comments No 0 (1 standard drink = 0.6 oz pur e alcohol) Sex and Gender Information Value Date Recorded Sex Assigned at Not on file Gender Identity Not on file Sexual Orientation Not on file Last Filed Vital Signs Vital Sign Reading Time Taken Comments Blood Pressure 130/88 08/03/2019 3:14 PM CDT Pulse 86 08/03/2019 3:14 PM CDT Temperature 36.1 C (97 F) 07/26/2019 10:30 AM CDT Respiratory Rate 15 07/26/2019 12:00 PM CDT Oxygen Saturation 90% 07/26/2019 12:10 PM CDT Inhaled Oxygen Concentration - - Weight 72.6 kg (160 lb) 08/03/2019 3:14 PM CDT Height 162.6 cm (5' 4 ) 08/03/2019 3:14 PM CDT Body Mass Index 27.46 08/03/2019 3:14 PM CDT Procedures * PATHOLOGY/CYTOLOGY REPORT ORDER(Performed 07/27/2019) * CULTURE FUNGUS OTHER+FUNGUS SMEAR(Performed 07/26/2019) Performed for Disease of salivary gland * CULTURE ANAEROBE(Performed 07/26/2019) Performed for Disease of salivary gland * CULTURE AFB+SMEAR(Performed 07/26/2019) Performed for Disease of salivary gland * CULTURE WOUND+GRAM STAIN(Performed 07/26/2019) Performed for Disease of salivary gland * PATHOLOGY TISSUE(Performed 07/26/2019) Performed for Disease of salivary gland, Neck mass * PAROTIDECTOMY(Performed 07/26/2019) Performed for Disease of salivary gland, Neck mass * ENDOTRACHEAL TUBE NOTE(Performed 07/26/2019) * ABO TYPE: RETYPE-PATIENT RESULT ONLY(Performed 07/26/2019) * PREPARE RBC LEUKOREDUCED UNIT(Performed 07/26/2019) Performed for Disease of salivary gland * TYPE + SCREEN PANEL(Performed 07/26/2019) * CBC W AUTO DIFFERENTIAL(Performed 07/11/2019) Performed for Preop examination * BASIC METABOLIC PANEL (CALCIUM TOTAL)(Performed 07/11/2019) Performed for Preop examination * PATHOLOGY/CYTOLOGY REPORT ORDER(Performed 07/02/2019) * MRI ORBITS OR FACE WWO CONTRAST(Performed 07/02/2019) Performed for Parotid mass * CREATININE BLOOD - POCT (IP) SLH(Performed 07/02/2019) Performed for Parotid mass * PROC BIOPSY SKIN(Performed 06/25/2019) Performed for Parotid mass, Neck mass * PATHOLOGY TISSUE(Performed 06/22/2019) Performed for Parotid mass, Neck mass * CT NECK SOFT TISSUE WO CONT(Performed 06/21/2019) Performed for Neck mass * GA PUNCH BX SKIN SINGLE LESION(Performed 06/15/2019) Performed for Skin lesion * PATHOLOGY TISSUE(Performed 06/14/2019) Performed for Neck mass * FINE NEEDLE ASPIRATION (STL)(Performed 06/13/2019) Performed for Neck mass * XR SPINE ENTIRE 2 OR 3VW(Performed 05/19/2019) Performed for Back pain, unspecified back location, unspecified back pain laterality, unspecified chronicity * GA LARYNGOSCOPY,FLEX FIBER,DIAGNOSTIC(Performed 05/12/2019) Performed for Other dysphagia * CULTURE ABSCESS+GRAM STAIN(Performed 05/12/2019) Performed for Neck mass * FINE NEEDLE ASPIRATION (STL)(Performed 05/12/2019) Performed for Neck mass Results * PATHOLOGY/CYTOLOGY REPORT ORDER (07/27/2019 12:14 PM CDT) Only the most recent of2 resultswithin the time period is included. Narrative 07/27/2019 12:14 PM CDT Ordered by an unspecified provider. Scanned Document LAB - PATHOLOGY/CYTO LOGY ORDERABLES * CULTURE FUNGUS OTHER+FUNGUS SMEAR (07/26/2019 9:30 AM CDT) Culture No fungus isolated IVIS 08/22/2019 5:35 AM [facility]CRO[facility] Fungus Stain No yeast or hyphae seen 08/22/2019 5:35 AM [facility]CRO[facility] Microbiology MASS OF PAROTID GLAND / Unknown Collection / Unknown 07/26/2019 9:30 AM CDT 07/26/2019 11:13 AM CDT Balbir Valles MD LAB - MICROBIOLOGY O KATHRYN Performing Organization Address City/[facility]/ZIP Co de Phone Number [facility]CROBI[facility] [address] [place] [address], [facility] [phone] * (ABNORMAL) CULTURE WOUND+GRAM STAIN (07/26/2019 9:30 AM CDT) Culture Rare Staphylococcus aureus(A) IVIS 07/28/2019 7:29 AM CDT [facility]CRO[facility] Gram Stain No organisms seen 019 7:29 AM CDT [facility] Gram Stain Light Polymorphonuclear cells 07/28/2019 7:29 AM CDT [facility]CROBI[facility] Microbiology MASS OF PAROTID GLAND / Unknown Collection / Unknown 07/26/2019 9:30 AM CDT 07/26/2019 11:13 AM CDT Narrative Organism Antibiotic Method Susceptibility Staphylococcus aureus Ciprofloxacin IVIS <=0.5 ug/mL: Susceptible Staphylococcus aureus Clindamycin IVIS 0.25 ug/mL: Susceptible Staphylococcus aureus Doxycycline IVIS <=0.5 ug/mL: Susceptible Staphylococcus aureus Erythromycin IVIS >=8 ug/mL: Resistant Staphylococcus aureus Gentamicin IVIS <=0.5 ug/mL: Susceptible Staphylococcus aureus Inducible Clindamy oz Resistance IVIS NEG ug/mL: Neg Staphylococcus aureus Levofloxacin IVIS 0.25 ug/mL: Susceptible Staphylococcus aureus Linezolid IVIS 2 ug/mL: Susceptible Staphylococcus aureus Oxacillin IVIS <=0.25 ug/mL: Susceptible Staphylococcus aureus Tetracycline IVIS <=1 ug/mL: Susceptible Staphylococcus aureus Trimethoprim-sulfa methoxa zole IVIS <=10 ug/mL: Susceptible Staphylococcus aureus Vancomycin IVIS <=0.5 ug/mL: Susceptible Comment:Methicillin-suscepti ble Staphylococci are susceptible to oxacillin, nafcillin, cloxacillin,dicloxacillin, beta lactam/betalactamase inhibitor combinations, cephalosporins including cefazolin and carbapenems. Balbir Valles MD LAB - MICROBIOLOGY O KATHRYN [facility] MICROBIOLOGY [address] [place] [address], [facility] [phone] * CULTURE AFB+SMEAR (07/26/2019 9:30 AM CDT) Culture No acid-fast bacillus isolated 09/05/2019 9:38 AM [facility]CROBI[facility] AFB Smear No acid-fast bacilli seen 09/05/2019 9:38 AM [facility]CRO[facility] Microbiology MASS OF PAROTID GLAND / Unknown Collection / Unknown 07/26/2019 9:30 AM CDT 07/26/2019 11:13 AM CDT Balbir Valles MD LAB - MICROBIOLOGY O KATHRYN Performing Organization Address City/[facility]/ZIP Co de Phone Number [facility]CROBIOLOG[facility] [address] [place] [address], [facility] [phone] * CULTURE ANAEROBE (07/26/2019 9:30 AM CDT) Culture No anaerobic organisms isolated IVIS 08/01/2019 3:34 PM CDT [facility] MICROBIOLOGY Microbiology MASS OF PAROTID GLAND / Unknown Collection / Unknown 07/26/2019 9:30 AM CDT 07/26/2019 11:13 AM CDT Balbir Valles MD LAB - MICROBIOLOGY O KATHRYN Performing Organization Address [facility]/ZIP Co de Phone Number [facility]CROBI[facility] [address] [place] [address], [facility] [phone] * PATHOLOGY TISSUE (07/26/2019 9:14 AM CDT) Only the most recent of3 resultswithin the time period is included. Case Report Surgical Pathology Report Case: [id number] Authorizing Provider: Balbir Valles MD Collected: 07/26/2019 09:14 AM Ordering Location: [facility] Received: 07/26/2019 10:42 AM Pathologist: Tonya Call MD Specimen: Parotid Gland, 1. Left superficial parotidectomy with skin, stitch superior for frozen 9 2:55 PM CDT [facility] Final Diagnosis Neck, parotid mass, resection (A) - Warthin's tumor, completely resected - Abscess and scarring between the tumor and surface skin 2:55 PM [facility] Microscopic Description and Comment The frozen section diagnosis is confirmed. The slides show lymphoid tissue with an epithelial cell lining, consistent with Warthin's tumor. The tumor is well-encapsulated. There are focal areas with necrosis. Benign salivary gland is also present. 2:55 PM [facility] Clinical History The patient is a 53-year-old woman with a parotid mass. Operative procedure/findings: Left superficial parotidectomy with skin. 2:55 PM [facility] Intraoperative Consultation Received fresh for intraoperative consultation, specimen A, left superficial parotid with skin is a superficial parotidectomy specimen. The specimen measures 4.2 cm superior-inferior, 2.6 cm anterior-posterior and 2.6 cm medial-lateral. A 2.4 x 1.9 x 1.6 cm cyst is identified. A 0.9 cm in diameter central draining sinus is also identified in a 3.0 x 1.4 cm skin ellipse. The specimen is oriented with a stitch designating superior. The specimen is inked as follows: Deep - black; 3 o'clock - blue; 9 'clock - green. A section of the cyst tract and skin from the 6-9 o'clock quadrant is submitted as FSA1. 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 2:55 PM [facility] Gross Description The requisition and specimen label(s) are identified with the patient name, Ayanna Layton. Received in formalin following intraoperative consultation, specimen A, left superficial parotidectomy with skin consists of the remnants of FSA1 along with the remnants of the specimen. The remnants of FSA1 are entirely submitted in cassette A1. No other lesions are identified. Spiral Binder sections of the cyst with overlying skin are submitted in cassettes A2-A4. JH/cml 2:55 PM [facility] Addendum 1 AFB and GMS stains are negative for microorganisms. The findings do not alter the preciously rendered diagnosis. 2:55 PM [facility] Addendum electronically signed by Tonya Call MD on 08/02/2019 at 2:55 PM Disclaimer The performance characteristics of all immunohistochemical and indirect immunofluorescence stains (if any) cited in this report were determined by the Histopathology Laboratory of [facility]. Some of these tests were developed by our own laboratory and have not been cleared or approved by the US Food and Drug Administration. The FDA does not require this test to go through premarket FDA review. These tests are used for clinical purposes. They should not be regarded as investigational or for research. This laboratory is certified under the Clinical Laboratory Improvement Amendments (CLIA) as qualified to perform high complexity clinical laboratory testing. This case has been personally reviewed and interpreted by the attending (teaching) pathologist. 2:55 PM CDT [facility] Embedded Images 2:55 PM CDT [facility] Biopsy, Excision ENTIRE PAROTID GLAND / Unknown 07/26/2019 9:14 AM CDT 07/26/2019 10:42 AM CDT Comment:Pre-op diagnosis: PAROTID MASS, NECK MASS Balbir Valles MD LAB - PATHOLOGY/CYTO LOGY ORDERABLES Performing Organization Address City/State/[facility] Phone Number [facility] [address] [phone] * ETT Placement (07/26/2019 7:52 AM CDT) Narrative Chava Yo - 07/26/2019 7:52 AM CDT Chava Yo MD 07/26/2019 7:56 AM Endotracheal Tube Placement: Patient Location: OR. Intubation Event Date/Time: 07/26/2019 7:39 AM Procedure: intubation (94256). Procedure Section: Sedation: under general anesthesia. Indications for Airway Management: anesthesia Procedure pretreatments used? No Induction: standard IV Patient Position: sniffing and supine Mask Ventilation: easy. Blade Type: Emilio Blade Size: 3 Laryngoscopy View: grade 1 (full cords) Intubation Adjuncts: stylet Tube: endotracheal tube Placement: oral Tube type: endotracheal tube Tube Size (MM): 7 Depth of Insertion (CM): 20 Measured From: lips Cuff Inflated With: air Number of Attempts: 1. Placement Verified By: direct visualization, bilateral breath sounds, chest auscultation and CO2 monitor CXR Findings: ETT in proper place. Difficult Airway? No. Procedure Start Time: 07/26/2019 7:39 AM. Staff Section Anesthesia Provider: Chava Yo MD, Performed the procedure Provider #1: Jayjay Champion MD. Jayjay Champion MD GENERAL ANESTHESIA O RDERABLES * RETYPE PATIENT (07/26/2019 7:31 AM CDT) ABO 07/26/2019 9:00 AM CDT [facility] Rh Type 07/26/2019 9:00 AM CDT [facility] Typem 07/26/2019 9:00 AM CDT [facility] Interpretation 07/26/2019 9:00 AM CDT [facility] Blood BLOOD SPECIMEN / Unknown Lab Venipuncture / Unknown 07/26/2019 7:31 AM CDT 07/26/2019 7:31 AM CDT Narrative [facility] - 07/26/2019 9:00 AM CDT Re-type confirmed per [facility] Blood Bank policies & procedures. Results documented in department. Balbir Valles MD LAB - BLOOD BANK ORD ERABLES [facility] [address] [place] [address] * PREPARE (CROSSMATCH) RBC UNIT(S), 2 Units (07/26/2019 7:11 AM CDT) Unit Description LR Red Cells [facility] Unit ABO A [facility] Unit Rh POS [facility] Product Code RL1 [facility] OD BANK LAB Unit Donor # [id number] [facility] Product [facility] [id number] [facility] Blood Type Barcode 6200 [facility] Unit Description LR Red Cells [facility] Unit ABO A [facility] Unit Rh POS [facility] Product Code RL1 [facility] B[facility] OD BANK LAB Unit Donor # [id number] [facility] Unit Status released [facility] BLOO D BANK LAB Product Number [id number] [facility] B LOOD BANK LAB Blood Type Barcode 6200 [facility] Blood Bank BLOOD SPECIMEN / Unknown 07/26/2019 7:11 AM CDT 07/26/2019 7:11 AM CDT Chava Yo MD LAB - BLOOD BANK ORD ERABLES Performing Organization Address City/[facility]/ZIP Co de Phone Number [facility] [address] * TYPE + SCREEN PANEL (07/26/2019 7:04 AM CDT) Antibody Screen NEG 9 7:49 AM CDT [facility] Comment:@07/26/19 07:49 by V HUMB: ABO Rh A POS 07/26/2019 7:49 AM CDT [facility] Blood Bank BLOOD SPECIMEN / Unknown Venipuncture / Unknown 07/26/2019 7:04 AM CDT 07/26/2019 7:10 AM CDT Alonso Sanches MD LAB - BLOOD BANK ORD ERABLES [facility] [address] * (ABNORMAL) CBC W AUTO DIFFERENTIAL (07/11/2019 10:11 AM CDT) WBC 5.5 3.5 - 10.5 10 3/uL 07/11/2019 10:20 AM CDT [facility] RBC 4.05 3.90 - 5.00 10 6/uL 07/11/2019 10:20 AM CDT [facility] Hemoglobin 13.4 12.0 - 15.5 g/dL 07/11/2019 10:20 AM CDT [facility] Hematocrit 40.9 35.0 - 45.0 % 07/11/2019 10:20 AM CDT [facility] MCV 101.0(H) 81.0 - 97.0 fL 07/11/2019 10:20 AM CDT [facility] MCH 33.1 28.0 - 34.0 pg 07/11/2019 10:20 AM [facility] MCHC 32.8 32.0 - 36.0 g/dL 07/11/2019 10:20 AM [facility] Platelet Count 272 150 - 400 10 3/uL 07/11/2019 10:20 AM [facility] RDW-SD 47.8 36.0 - 50.0 fL 07/11/2019 10:20 AM [facility] RDW-CV 12.7 11.2 - 14.8 % 07/11/2019 10:20 AM [facility] MPV 9.1(L) 9.3 - 12.8 fL 07/11/2019 10:20 AM [facility] nRBC Absolute 0.00 0 10 3/uL 07/11/2019 10:20 AM [facility] nRBC Auto 0.0 0 /100 WBC 07/11/2019 10:20 AM [facility] Neutrophils % 54.8 35.0 - 70.0 % 07/11/2019 10:20 AM [facility] Lymphocytes % 33.4 19.7 - 55.1 % 07/11/2019 10:20 AM [facility] Monocytes % 6.5 3.0 - 15.0 % 07/11/2019 10:20 AM [facility] Eosinophils % 4.0 0.0 - 6.0 % 07/11/2019 10:20 AM [facility] Basophil % 0.9 0.0 - 1.5 % 07/11/2019 10:20 AM [facility] Neutrophils Absolute 3.0 1.6 - 7.0 10 3/uL 07/11/2019 10:20 AM [facility] Lymphocyte Absolute 1.8 0.8 - 2.9 10 3/uL 07/11/2019 10:20 AM [facility] Monocytes Absolute 0.36 0.14 - 0.66 10 3/uL 07/11/2019 10:20 AM [facility] Eosinophils Absolute 0.22 0.00 - 0.45 10 3/uL 07/11/2019 10:20 AM [facility] Basophils Absolute 0.05 0.00 - 0.06 10 3/uL 07/11/2019 10:20 AM [facility] Immature Granulocytes % 0.4 0.0 - 1.0 % 07/11/2019 10:20 AM [facility] Blood BLOOD SPECIMEN / Unknown Lab Venipuncture / Unknown 07/11/2019 10:11 AM CDT 07/11/2019 10:15 AM CDT Nano Arias [employer] LAB - HEMATOLOGY ORDERABLES [facility] [address] [place] [address] * (ABNORMAL) BASIC METABOLIC PANEL (CALCIUM TOTAL) (07/11/2019 10:11 AM T) BUN 18 7 - 26 mg/dL 07/11/2019 10:41 AM [facility] Creatinine 1.2 0.6 - 1.2 mg/dL 07/11/2019 10:41 AM [facility] Sodium 141 136 - 145 mmol/L 07/11/2019 10:41 AM [facility] Potassium 4.7(H) 3.5 - 4.5 mmol/L 07/11/2019 10:41 AM [facility] Chloride 108(H) 98 - 107 mmol/L 07/11/2019 10:41 AM [facility] CO2 19(L) 22 - 29 mmol/L 07/11/2019 10:41 AM [facility] Glucose 77 70 - 115 mg/dL 07/11/2019 10:41 AM [facility] Calcium 9.4 8.4 - 10.2 mg/dL 07/11/2019 10:41 AM [facility] Anion Gap 19(H) 8 - 18 07/11/2019 10:41 AM [facility] BUN/Creatinine Ratio 15 7 - 23 07/11/2019 10:41 AM [facility] Osmolality Calculated 293 270 - 300 mOsm/kg 07/11/2019 10:41 AM [facility] eGFR 47(L) >60 mL/min/1.7 3 m2 07/11/2019 10:41 AM [facility] Blood BLOOD SPECIMEN / Unknown Lab Venipuncture / Unknown 07/11/2019 10:11 AM CDT 07/11/2019 10:15 AM CDT Nano Arias [employer] LAB - CHEMISTRY ORDERABLES [address] [phone] * MRI ORBITS OR FACE WWO CONTRAST (07/02/2019 12:58 PM CDT) Anatomical Region Laterality Modality Head Magnetic Resonan ce 07/04/2019 10:0 5 AM CDT Impressions 07/04/2019 11:02 AM CDT IMPRESSION: Left parotid mass as above with extension to the skin surface. The imaging appearance is suggestive of a chronic infectious/inflammatory process. This report was dictated by Prashant Lopez M.D. (vice president of contracts). I, Dr. SONI MERINO have personally reviewed and interpreted this examination/study. This report was electronically signed by SONI MERINO on 07/04/2019 11:02 AM . Narrative 07/04/2019 11:02 AM CDT EXAMINATION: Magnetic resonance imaging (MRI) of the face without and with contrast HISTORY: K11.9: Parotid mass. Prior biopsies of the mass are not definitive, possibly representing sequela of infection/abscess or keratinaceous cyst. TECHNIQUE: MRI of the face was performed prior to and following the uneventful administration of 7 intravenous gadolinium contrast according to standard protocol. FINDINGS: Comparison is made with CT of the neck from 06/21/2019. There is a mixed solid and cystic heterogeneously well circumscribed mass in the left parotid gland (predominantly in the superficial lobe with some extension into the deep lobe with widening of the stylomandibular space). It demonstrates thick irregular enhancing periphery and internal septations with cystic/necrotic areas internally. There is diffusion restriction in the wall and septations of the lesion. The lesion extends to the infra-auricular skin surface with a skin defect, corresponding to the physical exam findings. The mass measures approximately 4.3 cm CC by 2.0 cm TV by 2.0 cm AP (series 16, image 17 series 17, image 10). A separate fat plane is not identified between the lesion and the sternocleidomastoid muscle as well as the mastoid process. There is no abnormal bone marrow signal. There is no cervical lymphadenopathy. The right parotid and submandibular glands appear normal. The visible portions of the paranasal sinuses are clear. The visible suprahyoid deep spaces of the neck and the pterygopalatine fossa appear normal on both sides. The tongue appears intrinsically normal. The visible portions of the orbits appear normal. The visible portions of the brain appear normal. Retrolisthesis of C5 on C6 measuring approximately 3 mm is noted on sagittal images. Mild thickening of the posterior longitudinal ligament is noted in the visible cervical spine. No suspicious marrow replacing lesions are seen in the cervical spine. Procedure Note Soni Merino MD - 07/04/2019 EXAMINATION: Magnetic resonance imaging (MRI) of the face without and with contrast HISTORY: K11.9: Parotid mass. Prior biopsies of the mass are not definitive, possibly representing sequela of infection/abscess or keratinaceous cyst. TECHNIQUE: MRI of the face was performed prior to and following the uneventful administration of 7 intravenous gadolinium contrast according to standard protocol. FINDINGS: Comparison is made with CT of the neck from 06/21/2019. There is a mixed solid and cystic heterogeneously well circumscribedmass in the left parotid gland (predominantly in the superficial lobe withsome extension into the deep lobe with widening of the stylomandibularspace). It demonstrates thick irregular enhancing periphery and internal septations with cystic/necrotic areas internally. There is diffusion restriction in the wall and septations of the lesion. The lesion extends to the infra-auricular skin surface with a skin defect, corresponding to the physical exam findings. The mass measures approximately 4.3 cm CC by 2.0 cm TV by 2.0 cm AP (series 16, image 17 series 17, image 10). A separate fat plane is not identified between the lesion and the sternocleidomastoid muscle as well as the mastoid process. There is no abnormal bone marrow signal. There is no cervical lymphadenopathy. The right parotid and submandibular glands appear normal. The visible portions of the paranasal sinuses are clear. The visible suprahyoid deep spaces of the neck and the pterygopalatine fossa appear normal on both sides. The tongue appears intrinsically normal. Thevisible portions of the orbits appear normal. The visible portions of the brain appear normal. Retrolisthesis of C5 on C6 measuring approximately 3 mm is noted on sagittal images. Mild thickening of the posterior longitudinal ligament is noted in thevisible cervical spine. No suspicious marrow replacing lesions are seen in the cervical spine. IMPRESSION: Left parotid mass as above with extension to the skin surface. Theimaging appearance is suggestive of a chronic infectious/inflammatory process. This report was dictated by Prashant Lopez M.D. (vice president of contracts). I, Dr. SONI MERINO have personally reviewed and interpreted this examination/study. This report was electronically signed by SONI MERINO on 07/04/2019 11:02 AM . Balbir Valles MD MR ORDERABLES * (ABNORMAL) CREATININE BLOOD - POCT (IP) [facility] (07/02/2019 12:05 PM CDT) Creatinine POCT 1.67(A) 0.3 - 1.3 mg/dL [facility] POCT TESTING eGFR POCT 34(A) 60 ml/min [facility] Blood BLOOD SPECIMEN / Unknown 07/02/2019 12:05 PM CDT Balbir Valles MD LAB - POINT OF CARE ORDERABLES [facility] POCT TESTING [address] [place] [address] * PROC BIOPSY SKIN (06/25/2019 12:01 AM CDT) Narrative Balbir Valles MD - 06/25/2019 12:01 AM CDT Balbir Valles MD 06/25/2019 12:02 AM See my full clinic note for details of the left parotid mass/left neck mass biopsy. Balbir Valles MD PROCEDURE/MINOR SURG ICAL ORDERABLES * CT NECK SOFT TISSUE WO CONT (06/21/2019 2:51 PM CDT) Anatomical Region Laterality Modality Head Computed Tomogra phy 06/21/2019 3:39 PM CDT Impressions 06/21/2019 8:11 PM CDT IMPRESSION: 1.Enlarged left parotid gland with ill-defined heterogenous mass as outlined. The mass extends to the skin surface with mild overlaying skin irregularities/lacerations. Evaluation is however limited due to lack of contrast administration. 2.Scattered small bilateral cervical lymph nodes not enlarged by CT size criteria. 3.Emphysema. 4.Degenerative disease of the cervical spine as outlined. This report was approved by Rajiv Ramirez on 06/21/2019 8:11 PM . I, Dr. JESSICA CRUZ have personally reviewed and interpreted this examination/study. This report was electronically signed by JESSICA CRUZ on 06/21/2019 8:11 PM . Narrative 06/21/2019 8:11 PM CDT EXAMINATION: Computed tomography (CT) of the neck without contrast HISTORY: Left parotid mass. TECHNIQUE: CT of the neck was performed without contrast according to standard protocol. Comparison: None available FINDINGS: The left parotid gland appears larger compared to the right parotid gland. There is an ill-defined echogenicity hypodense mass involving the left parotid gland measuring approximately 2.6 cm AP by 3.2 cm TS by 2.7 cm CC, (series 2, image 56 and series 6, image 69). There is extension to the skin surface was mild overlaying skin irregularity/ulcerations. Mild extension into the deep lobe of the left parotid gland Evaluation is however limited due to lack of contrast. Scattered subcentimeter bilateral cervical lymph nodes in the various neck stations are not enlarged by CT size criteria. No lymphadenopathy is seen. The muscles of the neck appear normal. Limited evaluation of the cervical internal carotid arteries and internal jugular veins due to lack of contrast. The remaining facial planes are preserved and the deep spaces of the neck appear normal. The visualized airway appears normal. The visualized portions of the posterior fossa and brain appear normal. Multilevel degenerative changes of the cervical spine, worst at C5-C6 where there is mild to moderate spinal canal stenosis. The visualized orbits and paranasal sinuses appear normal. Nonspecific tonsillar calcifications noted. Centrilobular emphysema in the imaged upper lungs..There are atherosclerotic changes of the aortic arch. Procedure Note Jessica Cruz MD - 06/21/2019 EXAMINATION: Computed tomography (CT) of the neck without contrast HISTORY: Left parotid mass. TECHNIQUE: CT of the neck was performed without contrast according to standard protocol. Comparison: None available FINDINGS: The left parotid gland appears larger compared to the right parotidgland. There is an ill-defined echogenicity hypodense mass involving the left parotid gland measuring approximately 2.6 cm AP by 3.2 cm TS by 2.7 cmCC, (series 2, image 56 and series 6, image 69). There is extension to the skin surface was mild overlaying skin irregularity/ulcerations. Mild extension into the deep lobe of the left parotid gland Evaluation is however limited due to lack of contrast. Scattered subcentimeterbilateral cervical lymph nodes in the various neck stations are not enlarged by CT size criteria. No lymphadenopathy is seen. The muscles of the neckappear normal. Limited evaluation of the cervical internal carotid arteries and internal jugular veins due to lack of contrast. The remaining facial planes are preserved and the deep spaces of the neck appear normal. The visualized airway appears normal. The visualized portions of theposterior fossa and brain appear normal. Multilevel degenerative changes of the cervical spine, worst at C5-C6 where there is mild to moderate spinal canal stenosis. The visualized orbits and paranasal sinuses appearnormal. Nonspecific tonsillar calcifications noted. Centrilobular emphysema inthe imaged upper lungs..There are atherosclerotic changes of the aorticarch. IMPRESSION: 1.Enlarged left parotid gland with ill-defined heterogenous mass as outlined. The mass extends to the skin surface with mild overlaying skin irregularities/lacerations. Evaluation is however limited due to lack of contrast administration. 2.Scattered small bilateral cervical lymph nodes not enlarged by CT size criteria. 3.Emphysema. 4.Degenerative disease of the cervical spine as outlined. This report was approved by Rajiv Ramirez on 06/21/2019 8:11 PM . I, Dr. JESSICA CRUZ have personally reviewed and interpreted this examination/study. This report was electronically signed by JESSICA CRUZ on06/21/2019 8:11 PM . Pato Fowler MD CT ORDERABLES * GA PUNCH BX SKIN SINGLE LESION (06/15/2019 1:51 PM CDT) Narrative Pato Fowler MD - 06/15/2019 1:51 PM CDT Pato Fowler MD 06/15/2019 1:54 PM Due to the findings on physical examination, in correlation with the patient's symptomatology, the decision was made to perform a procedure today in clinic. Consent obtained prior to starting procedure. Procedure Note: Pre Op Dx: lesion of the left neck Post Op Dx: same Procedure performed: biopsy of the lesion Surgeon: Janeth Procedure in detail: Ayanna Layton is a 53 year old female with a chief complaint of left neck pain who was found to have a lesion requiring a biopsy. The risks, benefits, alternatives, and indications of the procedure were discussed in great detail and the patient understood these and wished to proceed. First, local numbing medications were used to anesthetize there area, this included 1%lido with epi. A biopsy was taken using a punch, as well as pickups and scissors to remove a central and a marginal portion of the lesion. This was sent for pathology. The area of skin breakdown overlying the mass was approximately 7 mm. The mass underlying was approximately 4 cm. Pato Fowler MD PROCEDURE/MINOR SCHAFER RGICAL ORDERABLES * FINE NEEDLE ASPIRATION (STL) (06/13/2019 9:32 AM CDT) Only the most recent of2 resultswithin the time period is included. Case Report Medical Cytology Report Case: [id number] Authorizing Provider: Pato Fowler MD Collected: 06/13/2019 09:32 AM Ordering Location: [facility] Otolaryngology Received: 06/13/2019 10:37 AM Pathologist: Tonya Call MD Specimen: Neck, Left 07/07/2019 6:07 PM [facility] Specimen Adequacy Adequate cellularity for evaluation. 07/07/2019 6:07 PM [facility] Final Diagnosis Neck mass, left, FNA cytology: - Atypia of undetermined significance - Stroma fragments and neutrophils (see comment) 07/07/2019 6:07 PM [facility] Clinical History Left neck mass 07/07/2019 6:07 PM [facility] Gross Description 2 pap & 2 diff-quik stained smears and 1 cell block from 15cc collection fluid 07/07/2019 6:07 PM [facility] Microscopic Description There are abundant neutrophils and lymphocytes admixed with stroma fragments. The differential diagnoses include pleomorphic adenoma and repairing stroma. If clinically indicated, re-biopsy after inflammation resolves. PRELIMINARY DIAGNOSIS: Immediate interpretation and FNA procedure performed by Dr. Marita Call Neck mass, left, FNA Episode 1 Pass 1-2- Stromal fragments present, cefer for permanent (10:10am) 07/07/2019 6:07 PM CDT [facility] Disclaimer The performance characteristics of all immunohistochemical and indirect immunofluorescence stains (if any) cited in this report were determined by the Histopathology Laboratory of [facility]. Some of these tests rely on the use of analyte-specific reagents and are subject to specific labeling requirements by the US Food and Drug Administration. Such tests were developed by the [facility] of [facility] and have not been cleared or approved by the FDA. The FDA has determined that such clearance and approval is not necessary. These tests are used for clinical purposes and should not be regarded as investigational or for research. This laboratory is certified under the Clinical Laboratory Improvement Amendments (CLIA) as qualified to perform high complexity clinical laboratory testing. This case has been personally reviewed and interpreted by the attending (teaching) pathologist. 07/07/2019 6:07 PM T [facility] Flow Cytometry Report, Addendum As performed on the cell block, Gram, GMS, Solo, and AFB stains are negative. 07/07/2019 6:07 PM T [facility] Addendum electronically signed by Manda Sosa MD on 07/07/2019 at 6:07 PM Embedded Images 07/07/2019 6:07 PM CDT [facility] Pathology/Cytolo gy ENTIRE NECK / Unknown 06/13/2019 9:32 AM CDT 06/13/2019 10:37 AM CDT Pato Fowler MD LAB - PATHOLOGY/CY TOLOGY ORDERABLES [facility] [address] [place], [place] [id number] [place] [address] * XR SPINE ENTIRE 2 OR 3VW (05/19/2019 9:49 AM CDT) Anatomical Region Laterality Modality Radiographic Juany ging 05/19/2019 10:1 1 AM CDT Impressions 05/19/2019 10:26 AM CDT Impression: 1. Multilevel degenerative disc disease Dictated by Pato Sykes MD (Resident) IDr. VICTOR MANUEL MD have personally reviewed and interpreted this examination/study. This report was electronically signed by VICTOR MANUEL COLINDRES MD on 05/19/2019 10:26 AM . Narrative 05/19/2019 10:26 AM CDT Exam: XR SPINE ENTIRE 2 views Date: 05/19/2019 9:49 AM History: back pain Comparison: None. Findings: There is mild thoracolumbar scoliosis including a dextro curve measuring 7 degrees from T6 to T12, and a levo curve measuring 13 degrees from T12 to L4. There is no coronal plane. There is positive sagittal plane imbalance of 3.8 cm. Multilevel degenerative disc disease is present. Procedure Note Victor Manuel Colindres MD - 05/19/2019 Exam: XR SPINE ENTIRE 2 views Date: 05/19/2019 9:49 AM History: back pain Comparison: None. Findings: There is mild thoracolumbar scoliosis including a dextro curve measuring7 degrees from T6 to T12, and a levo curve measuring 13 degrees from T12to L4. There is no coronal plane. There is positive sagittal planeimbalance of 3.8 cm. Multilevel degenerative disc disease is present. Impression: 1. Multilevel degenerative disc disease Dictated by Pato Sykes MD (Resident) IDr. VICTOR MANUEL MD have personally reviewed and interpreted this examination/study. This report was electronically signed by VICTOR MANUEL COLINDRES MD on05/19/2019 10:26 AM . Shahida Dimas PA-C DIAGNOSTIC IMAG ING ORDERABLES * GA LARYNGOSCOPY,FLEX FIBER,DIAGNOSTIC (05/12/2019 12:51 PM CDT) Narrative Pato Fowler MD - 05/12/2019 12:51 PM CDT Sal Pfeiffer MD 05/12/2019 12:20 PM Procedure Note Endoscopy Type: Laryngoscopy without stroboscopy [address]3843 Endoscope: Flexible 4mm Scope Anesthesia: Lidocaine 2% and Neosynephrine 1/2% (nasal) Procedure Details: The patient was sitting upright in a chair with the head in a slightly anterior sniffing position. The topical anesthesia was administered and then adequate time was allowed for an anesthetic effect. The endoscope was passed thru the nasal cavity. The tip of the endoscope was positioned in the oropharynx which allowed a complete view of the base of tongue, vallecula, pyriform recesses, epiglottis, bilateral true and false vocal folds, the interarytenoid and post cricoid region, and the immediate subglottis. Findings: no masses, lesions, or other abnormalities noted. TVCs mobile and symmetric bilaterally. Condition: Stable. Patient tolerated procedure well. Complications: None Dr. Fowler was present for the entirety of the procedure. Sal Pfeiffer MD PROCEDURE/MINOR SURG ICAL ORDERABLES * CULTURE ABSCESS+GRAM STAIN (05/12/2019 10:37 AM CDT) Culture No growth IVIS 05/15/2019 8:08 AM CDT [facility] Gram Stain Light Polymorphonuclear cells 05/15/2019 8:08 AM CDT [facility] Gram Stain No organisms seen 019 8:08 AM CDT [facility] Microbiology LESION SPECIMEN / Unknown Collection / Unknown 05/12/2019 10:37 AM CDT 05/12/2019 5:01 PM CDT Pato Fowler MD LAB - MICROBIOLOGY ORDERABLES [facility] [address] [place], [place] [address], [facility] [phone] Care Teams Climbing Guide Relationship Specialty Start Date End Date Berto Hernandez MD [address] [place] [address] PCP - General 04/23/16
--- OUTSIDE RECORDS SUMMARY | 2024-12-16 10:26 | XMS_ITS | Referral Summary ---
Author Organization [facility] [employer] Address [address] [place] [address] Care Team Providers Care Forest Resource Specialist Name Role Phone Berto Hernandez MD Primary Care Provider Source Comments [facility] [employer],non-owned Affiliates and Associated Physician Practices is amultiple site organization consisting of ambulatory clinics and hospital sitesin [place], [place], [place] and [place]. This disclosure is being madepursuant to the Care Everywhere program and may not contain all information available regarding this patient. Last updated 18.[facility] [employer] Allergies Active Allergy Reactions Criticality Noted Date Comments Codeine Nausea and/or Vomiting 07/26/2019 Reports severe nausea Medications Be aware that medications may not [...] Mass Index 27.46 08/03/2019 3:14 PM CDT Plan of Treatment Not on file Procedures Procedure Name Priority Date/Time Associated Diagnosis Comments BASIC METABOLIC PANEL (CALCIUM TOTAL) Routine 07/11/2019 10:11 AM CDT Preop examination from Last 3 Months or Most Recently Relevant to Health Maintenance Results * (ABNORMAL) BASIC METABOLIC PANEL (CALCIUM TOTAL) (07/11/2019 10:11 AM CDT) BUN 18 7 - 26 mg/dL 07/11/2019 10:[address] [facility] Creatinine 1.2 0.6 - 1.2 mg/dL 07/11/2019 10:[address] [facility] Sodium 141 136 - 145 mmol/L 07/11/2019 10:[address] [facility] Potassium 4.7(H) 3.5 - 4.5 mmol/L 07/11/2019 10:41 AM [facility] Chloride 108(H) 98 - 107 mmol/L 07/11/2019 10:41 AM [facility] CO2 19(L) 22 - 29 mmol/L 07/11/2019 10:41 AM [facility] Glucose 77 70 - 115 mg/dL 07/11/2019 10:41 AM [facility] Calcium 9.4 8.4 - 10.2 mg/dL 07/11/2019 10:41 AM [facility] Anion Gap 19(H) 8 - 18 07/11/2019 10:41 AM [facility] BUN/Creatinine Ratio 15 7 - 23 07/11/2019 10:41 AM [facility] Osmolality Calculated 293 270 - 300 mOsm/kg 07/11/2019 10:41 AM [facility] eGFR 47(L) >60 mL/min/1.7 3 m2 07/11/2019 10:41 AM [facility] Blood BLOOD SPECIMEN / Unknown Lab Venipuncture / Unknown 07/11/2019 10:11 AM CDT 07/11/2019 10:15 AM T Nano Arias BURGL[employer] ALARM INSPECTOR-INTERVENTIONAL RADIOLOGY RN LAB - CHEMISTRY ORDERABLES [facility] [address] [phone] from Last 3 Months or Most Recently Relevant to Health Maintenance Advance Directives * Full Code (Latest Code Status on File) Date Activated Date Inactivated Comments 07/25/2019 9:25 PM 07/26/2019 3:23 PM Care Teams Forest Resource Specialist Relationship Specialty Start Date End Date Berto Hernandez MD [address] [place] [id number] PCP - General 04/23/16
--- OUTSIDE RECORDS SUMMARY | 2024-12-16 10:26 | XMS_ITS | Clinical Summary ---
Author Organization [facility] Address [address] [place] [address] Care Team Providers Care Creative Writing Teacher Name Role Phone Berto Hernandez MD Primary Care Provider Source Comments [facility],non-owned Affiliates and Associated Physician Practices is amultiple site organization consisting of ambulatory clinics and hospital sitesin [place], [place], [place] and [place]. This disclosure is being madepursuant to the Care Everywhere program and may not contain all information available regarding this patient. Last updated 18.[facility] Allergies Active Allergy Reactions Criticality Noted Date [...] 08/03/2019 3:14 PM CDT Plan of Treatment Health Maintenance Due Date Last Done Comments COLOGUARD (AGES 45-75) - COL ON CA SCREENING 1963 COLON MONITORING 1963 COLONOSCOPY - COLON CA SCREENING 1963 CT COLONOGRAPHY - COLON CA SCREENING 1963 Colorectal Cancer Screening 1963 FIT - COLON CA SCREENING 1963 FLEX SIG - COLON CA SCREENING 1963 LIPID TESTING 1963 MAMMOGRAM 1963 PAP SMEAR 1963 HIV SCREENING 1978 HEPATITIS C SCREENING 11/07/1981 DTAP/TDAP/TD VACCINES (1 - Tdap) 1982 PNEUMOCOCCAL VACCINE (1 of 2 - PCV) 1982 PNEUMOCOCCAL VACCINE 50+ (1 of 1 - PCV) 2013 ZOSTER VACCINE (1 of 2) 2013 SCREENING FOR DIABETES 07/11/2022 07/11/2019 COVID-19 VACCINE (2023-2 5 season) 2024 INFLUENZA VACCINE (#1) 2024 DEPRESSION SCREENING 10/05/2024 Respiratory Syncytial Virus (RSV) Vaccine Pt: or over 60 yrs (1 - 1-dose 75+ series) 2038 HEPATITIS B VACCINE Aged Out No longe r eligible based on patient's age to complete this topic HIB VACCINE Aged Out No longer eligi ble based on patient's age to complete this topic HPV VACCINE Aged Out No longer eligi ble based on patient's age to complete this topic MENINGOCOCCAL (Group B) VACC INE SHARED DECISION-MAKING Aged Out No longer eligibl e based on patient's age to complete this topic MENINGOCOCCAL GROUPS A/C/Y/W VACCINE Aged Out No longer eligible b ased on patient's age to complete this topic Procedures Procedure Name Priority Date/Time Associated Diagnosis Comments BASIC METABOLIC PANEL (CALCIUM TOTAL) Routine 07/11/2019 10:11 AM CDT Preop examination from Last 3 Months or Most Recently Relevant to Health Maintenance Results * (ABNORMAL) BASIC METABOLIC PANEL (CALCIUM TOTAL) (07/11/2019 10:11 AM CDT) BUN 18 7 - 26 mg/dL 07/11/2019 10:41 AM [facility] Creatinine 1.2 0.6 - 1.2 mg/dL 07/11/2019 10:41 AM [facility] Sodium 141 136 - 145 mmol/L 07/11/2019 10:41 AM [facility] Potassium 4.7(H) 3.5 - 4.5 mmol/L 07/11/2019 10:41 AM [facility] Chloride 108(H) 98 - 107 mmol/L 07/11/2019 10:41 AM [facility] CO2 19(L) 22 - 29 mmol/L 07/11/2019 10:41 AM [facility] Glucose 77 70 - 115 mg/dL 07/11/2019 10:41 AM [facility] Calcium 9.4 8.4 - 10.2 mg/dL 07/11/2019 10:41 AM CDT [facility] Anion Gap 19(H) 8 - 18 07/11/2019 10:41 AM T [facility] BUN/Creatinine Ratio 15 7 - 23 07/11/2019 10:41 AM T [facility] Osmolality Calculated 293 270 - 300 mOsm/kg 07/11/2019 10:41 AM T [facility] eGFR 47(L) >60 mL/min/1.7 3 m2 07/11/2019 10:41 AM T [facility] Blood BLOOD SPECIMEN / Unknown Lab Venipuncture / Unknown 07/11/2019 10:11 AM CDT 07/11/2019 10:15 AM CDT Nano Arias PIZZA DRIVER-SPORTING GOODS SALES ASSOCIATE LAB - CHEMISTRY ORDERABLES [facility] [address] [phone] from Last 3 Months or Most Recently Relevant to Health Maintenance Advance Directives * Full Code (Latest Code Status on File) Date Activated Date Inactivated Comments 07/25/2019 9:25 PM 07/26/2019 3:23 PM Care Teams Creative Writing Teacher Relationship Specialty Start Date End Date Berto Hernandez MD [address] [place] [address] PCP - General 04/23/16
--- NOTE | 2024-12-16 12:18 | ED.SKABFB ---
HPI - Skin/Abscess/Foreign Bdy General Chief complaint: Skin/Abscess/Foreign Body Stated complaint: bump and redness to L. of nose Time Seen by Provider: 12/16/24 11:55 Source: patient Mode of arrival: ambulatory Limitations: no limitations History of Present Illness HPI narrative: This is a 59-year-old female that presents to the emergency department for an area of redness and swelling to the left side of her face. Reports she has had the swelling for several years. It became red and painful yesterday. She was seen at another facility and started on Keflex. She has been taking this with worsening of her symptoms. Denies fevers. Related Data Allergies Allergy/AdvReac Type Severity Reaction Status Date / Time No Known Allergies Allergy Verified 12/16/24 09:51 Review of Systems Review of Systems: CONSTITUTIONAL: Denies fever SKIN: Reports redness and swelling All systems reviewed & are unremarkable except as noted in HPI and below PMFSH Social History Social History (Updated 12/16/24 @ 12:20 by Evelyn Peterson PA-C) Substance use: never Exam Narrative: GENERAL: Well-appearing, well-nourished, and in no acute distress. HEAD: Normocephalic, atraumatic. Small area of erythema to the left of the nose with underlying cyst present EYES: EOMI. ENT: Nares clear, no rhinorrhea or epistaxis. Mucous membranes moist. Oropharynx without tonsillar hypertrophy exudate or other lesions. NECK: Supple. No adenopathy or masses. CHEST: Clear to auscultation. No respiratory distress. No wheezes rales or rhonchi HEART: Regular rate and rhythm. No murmur heard. Normal peripheral pulses. EXTREMITIES: Normal range of motion. No edema. SKIN: Warm, dry, no rash. NEURO: No focal deficits. Alert and oriented x3. PSYCH: Normal mood and affect Course Course Emergency Course: patient updated on workup and agrees with plan of care Consultations Consultation #1: Spoke with Dr. Woodward, [facility]NT, about patient and workup. Patient will be switched to antibiotic to cover MRSA. She may follow up in clinic Date: 12/16/24 Vital Signs Vital signs: Vital Signs Temperature 97.9 F 12/16/24 10:03 Pulse Rate 81 12/16/24 10:03 Respiratory Rate 16 12/16/24 10:03 Blood Pressure 124/78 12/16/24 10:03 Pulse Oximetry 99 12/16/24 10:03 Oxygen Delivery Room Air 12/16/24 10:03 Temperature 97.9 F 12/16/24 14:51 Pulse Rate 74 12/16/24 16:20 Respiratory Rate 16 12/16/24 16:20 Blood Pressure 140/96 H 12/16/24 16:20 Pulse Oximetry 100 12/16/24 16:20 Oxygen Delivery Room Air 12/16/24 10:03 MDM - Skin/Abscess/Foreign Bdy MDM Narrative Medical decision making narrative: Patient presents the emergency department for a cyst has been present on face for several years. Reporting some redness in the area that started yesterday. Patient is afebrile and nontoxic appearing. Her vitals are stable. Cbc without leukocytosis. ESR is mildly elevated, CRP is normal. CT facial bone shows a 9 mm subcutaneous cystic mass with surrounding fat stranding in the left cheek. Spoke with Dr. Woodward, [facility], about patient and workup. Patient will be switched to antibiotic to cover MRSA. She may follow up in clinic. Patient was given warnings to return the ER Differential Diagnosis Differential diagnosis: Likely abscess of skin or subcutaneous tissue, cellulitis and other (Cyst) Lab Data Attestation: I reviewed the patient's lab results. 12/16/24 12:34 12/16/24 12:34 Labs: Lab Results 12/16/24 Range/Units 12:34 WBC 6.7 (4.5-10.0) K/mm3 RBC 3.99 L (4.2-5.4) M/mm3 Hgb 13.5 (12.0-15.0) g/dL Hct 40.9 (37.0-47.0) % MCV 102.5 H (80-100) fl MCH 33.8 (26-34) pg MCHC 33.0 (32-36) g/dl RDW 13.0 (11.5-14.5) % Plt Count 287 (150-375) k/mm3 MPV 9.2 (7.4-10.4) fl Immature Gran % (Auto) 0.1 (0-0.5) % Neut % (Auto) 67.2 (45.5-73.1) % Lymph % (Auto) 26.0 (18.3-44.2) % Vermilion % (Auto) 5.1 (2.6-8.5) % Eos % (Auto) 1.0 (0-4.4) % Baso % (Auto) 0.6 (0.2-1.2) % Lymph # (Auto) 1.74 (0.9-3.2) K/mm3 Vermilion # (Auto) 0.3 (0.1-0.6) K/mm3 Eos # (Auto) 0.1 (0-0.3) K/mm3 Baso # (Auto) 0.0 (0.0-0.1) K/mm3 Abs Immat Gran (auto) 0.01 (0.00-0.031) K/mm3 Absolute Neuts (auto) 4.5 (1.3-6.7) K/mm3 Absolute Nucleated RBC 0.000 (0.0-0.012) K/mm3 Nucleated RBC % 0.0 (0.0-0.2) % ESR 24 H (0-20) mm/hr Sodium 141 (137-145) mmol/L Potassium 4.2 (3.4-5.0) mmol/L Chloride 105 (98-107) mmol/L Carbon Dioxide 27 (22-30) mmol/L Anion Gap 9 (4-12) mmol/L BUN 17 (7-17) mg/dL Creatinine 1.15 H (0.7-1.0) mg/dL Estim Creat Clear Calc 39 ml/min Estimated GFR 48 L (59 - ) Glucose 82 (65-110) mg/dL Calcium 9.7 (8.4-10.2) mg/dL C-Reactive Protein 0.9 (<1.0) mg/dL Imaging Data Radiologist's impression: ITS Impressions Face CT 12/16/24 15:40 IMPRESSION: 1. 9 mm subcutaneous cystic mass with surrounding fat stranding in the left cheek, which may be a sebaceous cyst with inflammation. Critical Care Time Critical Care Time Critical Care Time: No Discharge Plan Discharge Clinical Impression: Cyst Cellulitis Qualifiers: Site of cellulitis: face Qualified Code(s): L03.211 - Cellulitis of face Patient Disposition: Home, Self-Care Condition: Stable Instructions: Antibiotic Form, Cellulitis (ED), Cyst (ED) Additional Instructions: Return if symptoms worsen or concerns: any increase in redness, swelling, pain or fever over 101 Take antibiotics as directed. Clean wound with mild soapy water. Apply antibiotic ointment twice daily Follow up with primary care in the next 2-3 days for re-evaluation. Follow up with ENT at [facility]. Call Patient Language: Malay Prescriptions: New doxycycline hyclate 100 mg tablet 100 mg PO BID 7 Days Qty: 14 0RF mupirocin [Centany] 2 % ointment 1 applic topical BID 7 Days Qty: 15 0RF Follow-up/Referrals: PHYSICIAN NOT ON STAFF,NONSTAFF [Non-Staff] -
--- OUTSIDE RECORDS SUMMARY | 2024-12-16 12:29 | XMS_ITS | CONTINUITY OF CARE DOCUMENT ---
Author Name payal moe Address Unknown Organization [facility] Address [address] [place] [address] Phone [phone] Care Team Providers Care Esthetician/Spa Coordinator Name Role Phone Mk KYLE, Janak Unavailable ROMULO ERNANDEZ PA-C Unavailable [phone] INSURANCE PROVIDERS Payer name Policy type / Coverage type [place] red republican [employer] MEDICA[employer] (2) Medicaid [id number]
--- OUTSIDE RECORDS SUMMARY | 2024-12-16 12:29 | XMS_ITS | Patient Health Summary ---
Author Organization [facility] [employer] Address [address] [facility] [place] [address] Care Team Providers Care Hvac Sheet Metal Installer Helper Name Role Phone Berto Hernandez MD Primary Care Provider Note from [facility],non-owned Affiliates and Associated Physician Practices is amultiple site organization consisting of ambulatory clinics and hospital sitesin [place], [place], [place] and [place]. This disclosure is being madepursuant to the Care Everywhere program and may not contain all information available regarding this patient. Last updated 18.[facility] [employer] Allergies * Codeine(Nausea and/or Vomiting) Medications Be [...] CONT(Performed 06/21/2019) Performed for Neck mass * OH PUNCH BX SKIN SINGLE LESION(Performed 06/15/2019) Performed for Skin lesion * PATHOLOGY TISSUE(Performed 06/14/2019) Performed for Neck mass * FINE NEEDLE ASPIRATION (STL)(Performed 06/13/2019) Performed for Neck mass * XR SPINE ENTIRE 2 OR 3VW(Performed 05/19/2019) Performed for Back pain, unspecified back location, unspecified back pain laterality, unspecified chronicity * OH LARYNGOSCOPY,FLEX FIBER,DIAGNOSTIC(Performed 05/12/2019) Performed for Other dysphagia [...] No fungus isolated IVIS 08/22/2019 5:35 AM [facility]CRO[facility] Fungus Stain No yeast or hyphae seen 08/22/2019 5:35 AM [facility]CRO[facility] Microbiology MASS OF PAROTID GLAND / Unknown Collection / Unknown 07/26/2019 9:30 AM CDT 07/26/2019 11:13 AM CDT Balbir Valles MD LAB - MICROBIOLOGY O KATHRYN Performing Organization Address City/[facility]/ZIP Co de Phone Number [facility] [address] [place] [address], [facility] [phone] * (ABNORMAL) CULTURE WOUND+GRAM STAIN (07/26/2019 9:30 AM CDT) Culture Rare Staphylococcus aureus(A) IVIS 07/28/2019 7:29 AM CDT [facility] Gram Stain No organisms seen 019 7:29 AM CDT [facility] Gram Stain Light Polymorphonuclear cells 07/28/2019 7:29 AM CDT [facility] Microbiology MASS OF PAROTID GLAND / [...] Valles MD LAB - MICROBIOLOGY O KATHRYN [facility] [address] [place] [address], [facility] [phone] * CULTURE AFB+SMEAR (07/26/2019 9:30 AM CDT) Culture No acid-fast bacillus isolated 09/05/2019 9:38 AM [facility]CROBI[facility] AFB Smear No acid-fast bacilli seen 09/05/2019 9:38 AM [facility]CRO[facility] Microbiology MASS OF PAROTID GLAND / Unknown Collection / Unknown 07/26/2019 9:30 AM CDT 07/26/2019 11:13 AM CDT Balbir Valles MD LAB - MICROBIOLOGY O KATHRYN Performing Organization Address City/[facility]/ZIP Co de Phone Number [facility] [address] [place] [address], [facility] [phone] * CULTURE ANAEROBE (07/26/2019 9:30 AM CDT) Culture No anaerobic organisms isolated IVIS 08/01/2019 3:34 PM CDT [facility] Microbiology MASS OF PAROTID GLAND / Unknown Collection / Unknown 07/26/2019 9:30 AM CDT 07/26/2019 11:13 AM CDT Balbir Valles MD LAB - MICROBIOLOGY O KATHRYN Performing Organization Address [facility]/ZIP Co de Phone Number [facility] [address] [place] [address], [facility] [phone] * PATHOLOGY TISSUE (07/26/2019 9:14 AM CDT) Only the most recent of3 resultswithin the time period is included. Case Report Surgical Pathology Report Case: [id number] Authorizing Provider: Balbir Valles MD Collected: 07/26/2019 09:14 AM Ordering Location: [facility] Received: 07/26/2019 10:42 AM Pathologist: Tonya Call MD Specimen: Parotid Gland, 1. Left superficial parotidectomy with skin, stitch superior for frozen 9 2:55 PM CDT [facility] Final Diagnosis Neck, parotid mass, resection (A) - Warthin's tumor, completely resected - Abscess and scarring between the tumor and surface skin 2:55 PM [facility] PATH[facility] LAB Microscopic Description and Comment The frozen section diagnosis is confirmed. The slides show lymphoid tissue with an epithelial cell lining, consistent with Warthin's tumor. The tumor is well-encapsulated. There are focal areas with necrosis. Benign salivary gland is also present. 2:55 PM [facility] PATHOLOGY LAB Clinical History The patient is a 53-year-old woman with a parotid mass. Operative procedure/findings: Left superficial parotidectomy with skin. 2:55 PM [facility] PATH[facility] Intraoperative Consultation Received fresh [...] FSA1: Cystic lesion in/near parotid, excision: - Paulina's tumor By Clay Stuart M.D. 2:55 PM [facility] PATH[facility] Gross Description The requisition and specimen label(s) are identified with the patient name, Ayanna Layton. Received in formalin following intraoperative consultation, specimen A, left superficial parotidectomy with skin consists of the remnants of FSA1 along with the remnants of the specimen. The remnants of FSA1 are entirely submitted in cassette A1. No other lesions are identified. Boatswains Mate sections of the cyst with overlying skin are submitted in cassettes A2-A4. JH/cml 2:55 PM [facility] Addendum 1 AFB and GMS stains are negative for microorganisms. The findings do not alter the preciously rendered diagnosis. 2:55 PM [facility] PATH[facility] Addendum electronically signed by Tonya Call MD on 08/02/2019 at 2:55 PM Disclaimer The performance characteristics of all immunohistochemical and indirect immunofluorescence stains (if any) cited in this report were determined by the Histopathology Laboratory of [facility]. Some of these tests were developed by [...] the attending (teaching) pathologist. 2:55 PM CDT [facility] PATHOLOGY LAB Embedded Images 2:55 PM CDT [facility] PATH[facility] LAB Biopsy, Excision ENTIRE PAROTID GLAND / Unknown 07/26/2019 9:14 AM CDT 07/26/2019 10:42 AM CDT Comment:Pre-op diagnosis: PAROTID MASS, NECK MASS Balbir Valles MD LAB - PATHOLOGY/CYTO LOGY ORDERABLES Performing Organization Address City/State/[facility] Phone Number [facility] PATHOLOGY LAB [address] [phone] * ETT Placement (07/26/2019 7:52 AM CDT) Narrative Chava Yo - 07/26/2019 7:52 AM CDT Chava Yo MD 07/26/2019 7:56 AM Endotracheal Tube Placement: Patient Location: OR. Intubation Event Date/Time: 07/26/2019 7:39 AM Procedure: intubation ([id number]). Procedure Section: Sedation: under general anesthesia. Indications [...] AM CDT) ABO 07/26/2019 9:00 AM CDT [facility] Rh Type 07/26/2019 9:00 AM CDT [facility] Typem 07/26/2019 9:00 AM CDT [facility] Interpretation 07/26/2019 9:00 AM CDT [facility] Blood BLOOD SPECIMEN / Unknown Lab Venipuncture / Unknown 07/26/2019 7:31 AM CDT 07/26/2019 7:31 AM CDT Narrative [facility] - 07/26/2019 9:00 AM CDT Re-type confirmed per [facility] Blood Bank policies & procedures. Results documented in department. Balbir Valles MD LAB - BLOOD BANK ORD ERABLES [facility] [address] [place] [address] * PREPARE (CROSSMATCH) RBC UNIT(S), 2 Units (07/26/2019 7:11 AM CDT) Unit Description LR Red Cells [facility] Unit ABO A [facility] Unit Rh POS [facility] Product Code RL1 [facility] OD [facility] LAB Unit Donor # [id number] [facility] Unit Status released [facility] Product [facility] [id number] [facility] Blood Type Barcode 6200 [facility] Unit Description LR Red Cells [facility] Unit ABO A [facility] Unit Rh POS [facility] Product Code RL1 [facility] OD [facility] LAB Unit Donor # [id number] [facility] Unit Status released [facility] BL[facility] D BANK LAB Product Number [id number] [facility] B LOOD [facility] Blood Type Barcode 6200 [facility] Blood Bank BLOOD SPECIMEN / Unknown 07/26/2019 7:11 AM CDT 07/26/2019 7:11 AM CDT Chava Yo MD LAB - BLOOD BANK ORD ERABLES Performing Organization Address City/[facility]/ZIP Co de Phone Number [facility] [address] * TYPE + SCREEN PANEL (07/26/2019 7:04 AM CDT) Antibody Screen NEG 9 7:49 AM CDT [facility] Comment:@07/26/19 07:49 by V HUMB: ABO Rh A POS 07/26/2019 7:49 AM CDT [facility] Blood Bank BLOOD SPECIMEN / Unknown Venipuncture / Unknown 07/26/2019 7:04 AM CDT 07/26/2019 7:10 AM CDT Alonso Sanches MD LAB - BLOOD BANK ORD ERABLES [facility] [address] * (ABNORMAL) CBC W AUTO DIFFERENTIAL (07/11/2019 10:11 AM CDT) WBC 5.5 3.5 - 10.5 10 3/uL 07/11/2019 10:20 AM CDT [facility] RBC 4.05 3.90 - 5.00 10 6/uL 07/11/2019 10:20 AM CDT [facility] Hemoglobin 13.4 12.0 - 15.5 g/dL 07/11/2019 10:20 AM CDT [facility] Hematocrit 40.9 35.0 - 45.0 % 07/11/2019 10:20 AM CDT [facility] MCV 101.0(H) 81.0 - 97.0 fL 07/11/2019 10:20 AM CDT [facility] MCH 33.1 28.0 - 34.0 pg 07/11/2019 10:20 AM [facility] MCHC 32.8 32.0 - 36.0 g/dL 07/11/2019 10:20 AM [facility] Platelet Count 272 150 - 400 10 3/uL 07/11/2019 10:20 AM [facility] RDW-SD 47.8 36.0 - 50.0 fL 07/11/2019 10:20 AM [facility] RDW-CV 12.7 11.2 - 14.8 % 07/11/2019 10:20 AM [facility] MPV 9.1(L) 9.3 - 12.8 fL 07/11/2019 10:20 AM [facility] nRBC Absolute 0.00 0 10 3/uL 07/11/2019 10:20 AM [facility] nRBC Auto 0.0 0 /100 WBC 07/11/2019 10:20 AM [facility] Neutrophils % 54.8 35.0 - 70.0 % 07/11/2019 10:20 AM [facility] Lymphocytes % 33.4 19.7 - 55.1 % 07/11/2019 10:20 AM [facility] Monocytes % 6.5 3.0 - 15.0 % 07/11/2019 10:20 AM [facility] Eosinophils % 4.0 0.0 - 6.0 % 07/11/2019 10:20 AM [facility] Basophil % 0.9 0.0 - 1.5 % 07/11/2019 10:20 AM [facility] Neutrophils Absolute 3.0 1.6 - 7.0 10 3/uL 07/11/2019 10:20 AM [facility] Lymphocyte Absolute 1.8 0.8 - 2.9 10 3/uL 07/11/2019 10:20 AM [facility] Monocytes Absolute 0.36 0.14 - 0.66 10 3/uL 07/11/2019 10:20 AM [facility] Eosinophils Absolute 0.22 0.00 - 0.45 10 3/uL 07/11/2019 10:20 AM [facility] Basophils Absolute 0.05 0.00 - 0.06 10 3/uL 07/11/2019 10:20 AM [facility] Immature Granulocytes % 0.4 0.0 - 1.0 % 07/11/2019 10:20 AM [facility] Blood BLOOD SPECIMEN / Unknown Lab Venipuncture / Unknown 07/11/2019 10:11 AM CDT 07/11/2019 10:15 AM CDT [employer] MEAT SALES AND STORAGE MANAGER-CUSTOMS COMPLIANCE MANAGER LAB - HEMATOLOGY ORDERABLES [facility] [address] [place] [address] * (ABNORMAL) BASIC METABOLIC PANEL (CALCIUM TOTAL) (07/11/2019 10:11 AM T) BUN 18 7 - 26 mg/dL 07/11/2019 10:41 AM [facility] Creatinine 1.2 0.6 - 1.2 mg/dL 07/11/2019 10:41 AM [facility] Sodium 141 136 - 145 mmol/L 07/11/2019 10:41 AM [facility] Potassium 4.7(H) 3.5 - 4.5 mmol/L 07/11/2019 10:41 AM [facility] Chloride 108(H) 98 - 107 mmol/L 07/11/2019 10:41 AM [facility] CO2 19(L) 22 - 29 mmol/L 07/11/2019 10:41 AM [facility] Glucose 77 70 - 115 mg/dL 07/11/2019 10:41 AM [facility] Calcium 9.4 8.4 - 10.2 mg/dL 07/11/2019 10:41 AM [facility] Anion Gap 19(H) 8 - 18 07/11/2019 10:41 AM [facility] BUN/Creatinine Ratio 15 7 - 23 07/11/2019 10:41 AM [facility] Osmolality Calculated 293 270 - 300 mOsm/kg 07/11/2019 10:41 AM [facility] eGFR 47(L) >60 mL/min/1.7 3 m2 07/11/2019 10:41 AM [facility] Blood BLOOD SPECIMEN / Unknown Lab Venipuncture / Unknown 07/11/2019 10:11 AM CDT 07/11/2019 10:15 AM CDT [employer]as MEAT SALES AND STORAGE MANAGER-CUSTOMS COMPLIANCE MANAGER LAB - CHEMISTRY ORDERABLES [address] [phone] * MRI ORBITS OR FACE WWO CONTRAST (07/02/2019 12:58 PM CDT) Anatomical Region Laterality Modality Head Magnetic Resonan ce 07/04/2019 10:0 5 AM CDT Impressions 07/04/2019 11:02 AM CDT IMPRESSION: Left parotid mass as above with extension to the skin surface. The imaging appearance is suggestive of a chronic infectious/inflammatory process. This report was dictated by Prashant Lopez M.D. (president ergonomic consulting). I, Dr. SONI MERINO have personally reviewed [...] report was dictated by Prashant Lopez M.D. (president ergonomic consulting). I, Dr. SONI MERINO have personally reviewed and interpreted this examination/study. This report was electronically signed by SONI MERINO on 07/04/2019 11:02 AM . Balbir Valles MD MR ORDERABLES * (ABNORMAL) CREATININE BLOOD - POCT (IP) [facility] (07/02/2019 12:05 PM CDT) Creatinine POCT 1.67(A) 0.3 - 1.3 mg/dL [facility] POCT TESTING eGFR POCT 34(A) 60 ml/min [facility] POCT TESTING Blood BLOOD SPECIMEN / Unknown 07/02/2019 12:05 PM CDT Balbir Valles MD LAB - POINT OF CARE ORDERABLES [facility] POCT TESTING [address] [place] [address] * PROC BIOPSY SKIN (06/25/2019 12:01 AM [...] . Pato Fowler MD CT ORDERABLES * OH PUNCH BX SKIN SINGLE LESION (06/15/2019 1:51 [...] included. Case Report Medical Cytology Report Case: [id number] Authorizing Provider: Pato Fowler MD Collected: 06/13/2019 09:32 AM Ordering Location: [facility] Otolaryngology Received: 06/13/2019 10:37 AM Pathologist: Tonya Call MD Specimen: Neck, Left 07/07/2019 6:07 PM [facility] Specimen Adequacy Adequate cellularity for evaluation. 07/07/2019 6:07 PM [facility] Final Diagnosis Neck mass, left, FNA cytology: - Atypia of undetermined significance - Stroma fragments and neutrophils (see comment) 07/07/2019 6:07 PM [facility] Clinical History Left neck mass 07/07/2019 6:07 PM [facility] Gross Description 2 pap & 2 diff-quik stained smears and 1 cell block from 15cc collection fluid 07/07/2019 6:07 PM [facility] Microscopic Description There are abundant neutrophils and lymphocytes admixed with stroma fragments. The differential diagnoses include pleomorphic adenoma and repairing stroma. If clinically indicated, re-biopsy after inflammation resolves. PRELIMINARY DIAGNOSIS: Immediate interpretation and FNA procedure performed by Dr. Marita Call Neck mass, left, FNA Episode 1 Pass 1-2- Stromal fragments present, cefer for permanent (10:10am) 07/07/2019 6:07 PM CDT [facility] Disclaimer The performance characteristics of all immunohistochemical and indirect immunofluorescence stains (if any) cited in this report were determined by the Histopathology Laboratory of [facility]. Some of these tests rely on the use of analyte-specific reagents and are subject to specific labeling requirements by the [place] Food and Drug Administration. Such tests were developed by the Histology Laboratory of [facility] and have not been cleared or approved [...] attending (teaching) pathologist. 07/07/2019 6:07 PM T [facility] Flow Cytometry Report, Addendum As performed on the cell block, Gram, GMS, Solo, and AFB stains are negative. 07/07/2019 6:07 PM T [facility] Addendum electronically signed by Manda Sosa MD on 07/07/2019 at 6:07 PM Embedded Images 07/07/2019 6:07 PM CDT [facility] Pathology/Cytolo gy ENTIRE NECK / Unknown 06/13/2019 9:32 AM CDT 06/13/2019 10:37 AM CDT Pato Fowler MD LAB - PATHOLOGY/CY TOLOGY ORDERABLES [facility] [address] [place], [place] [address] [place] [address] * XR SPINE ENTIRE 2 OR 3VW [...] Dimas PA-C DIAGNOSTIC IMAG ING ORDERABLES * [place] LARYNGOSCOPY,FLEX FIBER,DIAGNOSTIC (05/12/2019 12:51 PM CDT) Narrative Pato Fowler MD - 05/12/2019 12:51 PM CDT Sal Pfeiffer MD 05/12/2019 12:20 PM Procedure Note Endoscopy Type: Laryngoscopy without stroboscopy [id number] Endoscope: Flexible 4mm Scope Anesthesia: Lidocaine 2% [...] No growth IVIS 05/15/2019 8:08 AM CDT [facility] Gram Stain Light Polymorphonuclear cells 05/15/2019 8:08 AM CDT [facility] Gram Stain No organisms seen 019 8:08 AM CDT [facility] Microbiology LESION SPECIMEN / Unknown Collection / Unknown 05/12/2019 10:37 AM CDT 05/12/2019 5:01 PM CDT Pato Fowler MD LAB - MICROBIOLOGY ORDERABLES [facility] [address] [place], [place] [address], [facility] [phone] Care Teams Hvac Sheet Metal Installer Helper Relationship Specialty Start Date End Date Berto Hernandez MD [address] [place] [phone] PCP - General 04/23/16
--- OUTSIDE RECORDS SUMMARY | 2024-12-16 12:29 | XMS_ITS | Referral Summary ---
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
--- OUTSIDE RECORDS SUMMARY | 2024-12-16 12:29 | XMS_ITS | Clinical Summary ---
Author Organization 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
--- OUTSIDE RECORDS SUMMARY | 2024-12-16 12:29 | XMS_ITS | Clinical Summary ---
Author Organization [facility] Address [address] [facility] [place] [address] Care Team Providers Care Vocational Education Teacher Name Role Phone Berto Hernandez MD Primary Care Provider [phone] Source Comments [facility],non-owned Affiliates and Associated Physician Practices is amultiple site organization consisting of ambulatory clinics and hospital sitesin [place], [place], [place] and [place]. This disclosure is being madepursuant to the Care Everywhere program and may not contain all information available regarding this patient. Last updated 18.[facility] Allergies Active Allergy Reactions Criticality Noted Date [...] 7 - 26 mg/dL 07/11/2019 10:41 AM [facility] Creatinine 1.2 0.6 - 1.2 mg/dL 07/11/2019 10:41 AM [facility] Sodium 141 136 - 145 mmol/L 07/11/2019 10:41 AM [facility] Potassium 4.7(H) 3.5 - 4.5 mmol/L 07/11/2019 10:41 AM [facility] Chloride 108(H) 98 - 107 mmol/L 07/11/2019 10:41 AM [facility] CO2 19(L) 22 - 29 mmol/L 07/11/2019 10:41 AM [facility] Glucose 77 70 - 115 mg/dL 07/11/2019 10:41 AM [facility] Calcium 9.4 8.4 - 10.2 mg/dL 07/11/2019 10:41 AM CDT [facility] Anion Gap 19(H) 8 - 18 07/11/2019 10:41 AM T [facility] BUN/Creatinine Ratio 15 7 - 23 07/11/2019 10:41 AM T [facility] Osmolality Calculated 293 270 - 300 mOsm/kg 07/11/2019 10:41 AM T [facility] eGFR 47(L) >60 mL/min/1.7 3 m2 07/11/2019 10:41 AM T [facility] Blood BLOOD SPECIMEN / Unknown Lab Venipuncture / Unknown 07/11/2019 10:11 AM CDT 07/11/2019 10:15 AM CDT Nano Arias CHIEF LOCK TENDER OPERATOR-LOCOMOTIVE ENGINEER ELECTRIC LAB - CHEMISTRY ORDERABLES [facility] [address] [phone] from Last 3 Months or Most Recently Relevant to Health Maintenance Advance Directives * Full Code (Latest Code Status on File) Date Activated Date Inactivated Comments 07/25/2019 9:25 PM 07/26/2019 3:23 PM Care Teams Vocational Education Teacher Relationship Specialty Start Date End Date Berto Hernandez MD [address] [place] [phone] PCP - General 04/23/16
--- OUTSIDE RECORDS SUMMARY | 2024-12-16 12:30 | XMS_ITS | Referral Summary ---
Author Organization [facility] Address [address] [place] [address] Care Team Providers Care Specialty Development Consultant Name Role Phone Berto Hernandez MD Primary Care Provider Source Comments [facility],non-owned Affiliates and Associated Physician Practices is amultiple site organization consisting of ambulatory clinics and hospital sitesin [place], [place], [place] and [place]. This disclosure is being madepursuant to the Care Everywhere program and may not contain all information available regarding this patient. Last updated 18.[facility] Allergies Active Allergy Reactions Criticality Noted Date [...] - 26 mg/dL 07/11/2019 10:41 AM [facility] Creatinine 1.2 0.6 - 1.2 mg/dL 07/11/2019 10:41 AM T [facility] Sodium 141 136 - 145 mmol/L 07/11/2019 10:41 AM [facility] Potassium 4.7(H) 3.5 - 4.5 mmol/L 07/11/2019 10:41 AM [facility] Chloride 108(H) 98 - 107 mmol/L 07/11/2019 10:41 AM [facility] CO2 19(L) 22 - 29 mmol/L 07/11/2019 10:41 AM [facility] Glucose 77 70 - 115 mg/dL 07/11/2019 10:41 AM [facility] Calcium 9.4 8.4 - 10.2 mg/dL 07/11/2019 10:41 AM [facility] Anion Gap 19(H) 8 - 18 07/11/2019 10:41 AM [facility] BUN/Creatinine Ratio 15 7 - 23 07/11/2019 10:41 AM [facility] Osmolality Calculated 293 270 - 300 mOsm/kg 07/11/2019 10:41 AM [facility] eGFR 47(L) >60 mL/min/1.7 3 m2 07/11/2019 10:41 AM [facility] Blood BLOOD SPECIMEN / Unknown Lab Venipuncture / Unknown 07/11/2019 10:11 AM CDT 07/11/2019 10:15 AM T [facility] [employer] [facility] - CHEMISTRY ORDERABLES [facility] [address] [phone] from Last 3 Months or Most Recently Relevant to Health Maintenance Advance Directives * Full Code (Latest Code Status on File) Date Activated Date Inactivated Comments 07/25/2019 9:25 PM 07/26/2019 3:23 PM Care Teams Specialty Development Consultant Relationship Specialty Start Date End Date Berto Hernandez MD [address] [place] [id number] PCP - General 04/23/16
[2024-12-16 12:55] LABS: Basophils Percent Auto 0.6 % (0.2-1.2); Eosinophils Absolute Auto 0.1 K/mm3 (0-0.3); Hematocrit 40.9 % (37.0-47.0); Hemoglobin 13.5 g/dL (12.0-15.0); Immature Granulocyte Absolute 0.01 K/mm3 (0.00-0.031); Immature Granulocyte Percent A 0.1 % (0-0.5); Lymphocytes Absolute Auto 1.74 K/mm3 (0.9-3.2); Mean Corpuscular Hemoglobin 33.8 pg (26-34); Mean Corpuscular Volume 102.5 fl (80-100); Mean Platelet Volume 9.2 fl (7.4-10.4); Monocytes Absolute Auto 0.3 K/mm3 (0.1-0.6); Monocytes Percent Auto 5.1 % (2.6-8.5); Neutrophils Absolute Auto 4.5 K/mm3 (1.3-6.7); Neutrophils Percent Auto 67.2 % (45.5-73.1); Platelet Count Result 287 k/mm3 (150-375); Red Blood Count 3.99 M/mm3 (4.2-5.4); White Blood Count 6.7 K/mm3 (4.5-10.0)
[2024-12-16 13:17] LABS: Anion Gap 9 mmol/L (4-12); Blood Urea Nitrogen 17 mg/dL (7-17); CRP 0.9 mg/dL (<1.0); Calcium 9.7 mg/dL (8.4-10.2); Carbon Dioxide 27 mmol/L (22-30); Chloride 105 mmol/L (98-107); Estimated CRCL calculation 39 ml/min; Estimated Glomerular Filt Rate 48; Glucose 82 mg/dL (65-110); Potassium 4.2 mmol/L (3.4-5.0); Sodium 141 mmol/L (137-145)
[2024-12-16 13:34] LABS: Erythrocyte Sedimentation Rate 24 mm/hr (0-20)
[2024-12-16 14:51] VITALS: BP 126/78; PULSE 68; RESP 17; TEMP 36.6; O2SAT 99
[2024-12-16 16:20] VITALS: BP 140/96; PULSE 74; RESP 16; O2SAT 100
[2024-12-16] MEDS: ceFAZolin 1 GM/NS 50 ML 1 GM/50 ML BAG IVPB (16:21)
[2024-12-16] MEDS: DOXYCYCLINE HYCLATE 100 MG TABLET PO (16:47)
== END 2024-12-16 18:05 | disposition home or self-care (01) ==
PROVIDERS: Emergency Provider Physician Assistant
DX: L03.211 Cellulitis of face (principal); L72.9 Follicular cyst of the skin and subcutaneous tissue, unspecified
CPT/HCPCS: 36415; 70487; 80048; 85025; 85652; 86140; 96365; 99284; A9270; J0690; Q9967